=== PATIENT | female | born 1950 | race Caucasian/White ===

== ENCOUNTER → 2020-02-02 12:19 | Outpatient (CLI) | payer MEDICARE, SELFPAY ==
--- NOTE | 2020-02-02 12:20 | MM_ITS ---
PROCEDURE: MM STEREOTACTIC LOC RT CLINICAL INDICATION: abnormal mamm/ HO lt breast cancer Abnormal mammogram, suspicious calcifications, history of left breast cancer TECHNIQUE: The patient was given 1 mg of Xanax, Lortab 5 mg, and analgesia and minor sedation. The patient was placed on the stereotactic table and the abnormality was localized in the most appropriate projection. The breast was prepped in the routine manner, with sterile prep and the overlying skin anesthetized. A 3 to 4 mm skin incision was performed and the 9 gauge sorus vacuum-assisted core biopsy needle was advanced to the region of the calcification. Pre- and post fire images were obtained. After adequate positioning relative to the calcifications was ensured, multiple biopsies were obtained in the region of the calcifications specifically. The core biopsies obtained were sent for specimen mammography. After the calcifications were indeed identified on the specimen mammogram, the procedure was terminated. The patient tolerated the procedure well without complications. Specimen was sent for pathologic analysis. A tiny titanium nonferromagnetic MicroMark was positioned through the mammotome needle into the biopsy site. Pathology: Fibroadenomatoid change with associated microcalcifications with a background of fibrocystic changes and adenosis. Negative for in situ and invasive malignancy IMPRESSION: Successful and uneventful stereotactic directed biopsy of the right breast showing benign findings. Recommend six-month mammographic follow-up per routine protocol. SPECIMEN RADIOGRAPH: The mammographically evident calcifications from the prior study are currently evident within the Perez dish and within the specimens obtained during mammotome procedure. This is considered an adequate specimen and the procedure was terminated. IMPRESSION: Successful removal of described breast calcifications. BREAST MAMMOGRAM: Compared to the prior study, the previously noted calcification have been removed. A small MicroMark clip was inserted into the region of the calcifications. There is evidence of soft tissue changes in the region of the biopsy was soft tissue gas and edema. 1. Adequate placement of the MicroMark clip postbiopsy. 2. Postbiopsy changes within the breast. Dictated by: Anand Hernandez MD 02/04/2020 12:16 Electronically signed by Anand Hernandez MD in [place] 02/04/2020 12:16
--- NOTE | 2020-02-02 13:11 | MM_ITS ---
PROCEDURE: MM DIG MAMM DX UNILAT RT CAD the CLINICAL INDICATION: EVALUATE FOR STEREO patient for stereotactic biopsy. Old films not available for review which were performed at an outside institution COMPARISON: No exams were available for comparison TECHNIQUE: Standard CC and MLO images and 3D Tomosynthesis was obtained. R2 CAD reviewed. FINDINGS: There is average to dense fibroglandular tissue. A cluster of calcifications are noted in the 6 o'clock region of the right breast which are suspicious and were described on the outside report. These were targeted for biopsy. IMPRESSION: BI-RAD Category: 4 Suspicious Abnormality - Biopsy Considered FOLLOW-UP: BIO Biopsy Recommended (A letter has been sent to the patient regarding results of the study.) Dictated by: Anand Hernandez MD 02/04/2020 12:12 Electronically signed by Anand Hernandez MD in [place] 02/04/2020 12:12
== END ==
PROVIDERS: PCP Physician Assistant; Visit Provider Surgery
DX: R92.8 Other abnormal and inconclusive findings on diagnostic imaging of breast (principal); Z85.3 Personal history of malignant neoplasm of breast
CPT/HCPCS: 19081; 76098; 77061; 77065; 88305; G0279

== ENCOUNTER → 2020-08-15 12:48 | Outpatient (CLI) | payer MEDICARE, SELFPAY ==
--- NOTE | 2020-08-15 12:54 | MM_ITS ---
PROCEDURE: MM DIG MAMM DX UNILAT RT CAD Digital Breast Tomosynthesis Included CLINICAL INDICATION: 6 MONTH FOLLOW UP COMPARISON: MG MM STEREOTACTIC LOC RT from 02/02/2020 MG MM DIG MAMM DX UNILAT RT CAD from 02/02/2020 MG MM CLIP PLACEMENT RT from 02/02/2020 TECHNIQUE: Standard CC and MLO images and 3D Tomosynthesis was obtained. R2 CAD reviewed. FINDINGS: Or glandular tissue. No malignant appearing mass or malignant-appearing microcalcification is evident. A clip is present in the inferior aspect of the right breast in the area of the previously described cluster of microcalcifications which are no longer apparent. IMPRESSION: Post biopsy changes. No evidence of malignancy. Recommend return to screening January 2021 BI-RAD Category: 2 Benign Finding(s) FOLLOW-UP: 6M 6Month Follow-up (A letter has been sent to the patient regarding results of the study.) Dictated by: Anand Hernandez MD 08/21/2020 09:25 Anand Hernandez MD in [place] 08/21/2020 09:25
== END ==
PROVIDERS: PCP Physician Assistant; Visit Provider Surgery
DX: R92.8 Other abnormal and inconclusive findings on diagnostic imaging of breast (principal)
CPT/HCPCS: 77061; 77065; G0279

== ENCOUNTER → 2021-01-29 09:39 | Outpatient (CLI) | payer MEDICARE, SELFPAY ==
--- NOTE | 2021-01-29 10:05 | MM_ITS ---
PROCEDURE: MM DIG SCREENING MAMM BI W/CAD Digital Breast Tomosynthesis Included CLINICAL INDICATION: SCREENING There is a history of lumpectomy left breast with follow-up chemotherapy in 2015. There is a history of breast cancer in the patient's 2 maternal cousins. COMPARISON: MG MM STEREOTACTIC LOC RT from 02/02/2020 MG MM CLIP PLACEMENT RT from 02/02/2020 MG MM DIG MAMM DX UNILAT RT CAD from 08/15/2020 TECHNIQUE: Standard CC and MLO images and 3D Tomosynthesis was obtained. R2 CAD reviewed. FINDINGS: There is prominent deformity left breast from the previous lumpectomy. Surgical clips are seen at the surgical site and in addition surgical clips are seen in the left axilla. Moderate residual fibroglandular elements are seen in both breasts. There is a biopsy clip right breast. There is no suspicious lesion in either breast and no suspicious microcalcifications. IMPRESSION: Moderate breast density with prominent postlumpectomy scarring left breast and no suspicious lesions seen. BI-RAD Category: 2 Benign Finding(s) FOLLOW-UP: 1YR 1 Year Follow-up (A letter has been sent to the patient regarding results of the study.) Dictated by: Dr. Sean Saunders MD 01/30/2021 11:08 Dr. Sean Saunders MD in [place] 01/30/2021 11:08
== END ==
PROVIDERS: PCP Physician Assistant; Visit Provider Surgery
DX: Z12.31 Encounter for screening mammogram for malignant neoplasm of breast (principal)
CPT/HCPCS: 77063; 77067

== ENCOUNTER → 2022-01-31 09:20 | Outpatient (CLI) | payer MEDICARE, OTHER, SELFPAY ==
--- NOTE | 2022-01-31 09:20 | MM_ITS ---
PROCEDURE INFORMATION: Exam: MG Bilateral Screening 3D Mammography Exam date and time: 01/31/2022 9:20 AM Age: 71 years old Clinical indication: Screening. Personal history of left breast cancer, status post lumpectomy in 2014. TECHNIQUE: Imaging protocol: Bilateral Screening tomosynthesis and 2D mammography including computer-aided detection (CAD) when performed. COMPARISON: MG MM DIG SCREENING MAMM BI W/CAD 01/29/2021 10:01 AM If additional prior mammograms are provided, I am happy to an addendum. FINDINGS: MAMMOGRAPHY: Breast composition: The breast tissue is heterogeneously dense, which may obscure small masses. Mass: Stable nodular appearance with no suspicious mass. Architectural distortion: Stable deformity and surgical clips at the lumpectomy site in the left lower inner quadrant. No suspicious architectural distortion. Calcifications: No suspicious calcifications. Asymmetric density: No developing asymmetry. Skin thickening: None. Axillary adenopathy: None. Surgical clips in the left axilla. IMPRESSION: No mammographic evidence of malignancy. Annual screening is recommended unless otherwise clinically indicated. ASSESSMENT: BI-RADS Category 2: Benign
== END ==
PROVIDERS: PCP Emergency Medicine; Visit Provider Surgery
DX: Z12.31 Encounter for screening mammogram for malignant neoplasm of breast (principal)
CPT/HCPCS: 77063; 77067

== ENCOUNTER → 2023-02-25 10:38 | Outpatient (CLI) | payer MEDICARE, OTHER, SELFPAY ==
--- NOTE | 2023-02-25 10:41 | MM_ITS ---
PROCEDURE INFORMATION: Exam: MG Bilateral Screening 3D Mammography Exam date and time: 02/25/2023 10:40 AM Age: 72 years old Clinical indication: Screening examination; Personal history of left breast cancer; Lumpectomy and chemotherapy TECHNIQUE: Imaging protocol: Bilateral Screening tomosynthesis and 2D mammography including computer-aided detection (CAD) when performed. COMPARISON: 1. MG MM DIG SCREENING MAMM BI W/CAD 01/31/2022 9:34 AM 2. MG MM DIG SCREENING MAMM BI W/CAD 01/29/2021 10:01 AM FINDINGS: MAMMOGRAPHY: Breast composition: The breasts are heterogeneously dense, which may obscure small masses. Mass: None. Architectural distortion: Stable post operative architectural distortion in the left medial breast due to prior lumpectomy for carcinoma. Calcifications: No suspicious calcifications. Asymmetric density: None. Skin thickening: None. Axillary adenopathy: None. IMPRESSION: No mammographic evidence of malignancy. Annual screening is recommended unless otherwise clinically indicated. ASSESSMENT: BI-RADS Category 2: Benign
== END ==
PROVIDERS: PCP Emergency Medicine; Visit Provider Emergency Medicine
DX: Z12.31 Encounter for screening mammogram for malignant neoplasm of breast (principal)
CPT/HCPCS: 77063; 77067

== ENCOUNTER 2024-03-08 14:37 | Outpatient (CLI) | payer MEDICARE, OTHER, SELFPAY ==
--- NOTE | 2024-03-08 14:42 | MM_ITS ---
PROCEDURE INFORMATION: Exam: MG Bilateral Screening 3D Mammography Exam date and time: 03/08/2024 2:51 PM Age: 73 years old Clinical indication: Screening examination. Personal history of left breast cancer TECHNIQUE: Imaging protocol: Bilateral Screening tomosynthesis and 2D mammography including computer-aided detection (CAD) when performed. COMPARISON: 1. MG MM DIG SCREENING MAMM BI W/CAD 02/25/2023 10:40 AM 2. MG MM DIG SCREENING MAMM BI W/CAD 01/31/2022 9:34 AM FINDINGS: MAMMOGRAPHY: Breast composition: The breasts are heterogeneously dense, which may obscure small masses. Mass: None. Architectural distortion: Stable post operative architectural distortion in the left medial breast with overlying skin retraction due to prior lumpectomy for carcinoma. Calcifications: No suspicious calcifications. Asymmetric density: None. Skin thickening: None. Axillary adenopathy: None. IMPRESSION: No mammographic evidence of malignancy. Annual screening is recommended unless otherwise clinically indicated. ASSESSMENT: BI-RADS Category 2: Benign.
== END 2024-03-08 23:59 ==
LOC: RAD 14:38
PROVIDERS: PCP Emergency Medicine; Visit Provider Emergency Medicine
DX: Z12.31 Encounter for screening mammogram for malignant neoplasm of breast (principal)
CPT/HCPCS: 77063; 77067

== ENCOUNTER 2025-03-09 15:15 | Outpatient (CLI) | payer MEDICARE, SELFPAY ==
--- NOTE | 2025-03-09 15:18 | MM_ITS ---
PROCEDURE INFORMATION: Exam: MG Bilateral Screening 3D Mammography Exam date and time: 03/09/2025 3:24 PM Age: 74 years old Clinical indication: Screening examination. History of left breast cancer TECHNIQUE: Imaging protocol: Bilateral Screening tomosynthesis and 2D mammography including computer-aided detection (CAD) when performed. COMPARISON: 1. MG MM DIG SCREENING MAMM BI W/CAD 03/08/2024 2:51 PM 2. MG MM DIG SCREENING MAMM BI W/CAD 02/25/2023 10:40 AM FINDINGS: MAMMOGRAPHY: Breast composition: The breasts are heterogeneously dense, which may obscure small masses. Mass: None. Architectural distortion: Stable post operative architectural distortion in the left right medial breast with overlying skin retraction due to prior lumpectomy for carcinoma. Calcifications: No suspicious calcifications. Asymmetric density: None. Skin thickening: None. Axillary adenopathy: None. IMPRESSION: 1. No mammographic evidence of malignancy. Annual screening is recommended unless otherwise clinically indicated. 2. In women diagnosed with breast cancer before age 50 or with personal histories of breast cancer and dense breasts, the [employer] recommends annual supplemental MRI in addition to yearly mammography. Alternative supplemental studies may include breast sonography or contrast enhanced mammography. Please be aware that your insurance company will determine whether they will cover the cost of such screening, despite the recommendation of your doctors and the [employer]. It is your responsibility to determine your insurance benefits. ASSESSMENT: BI-RADS Category 2: Benign.
--- OUTSIDE RECORDS SUMMARY | 2025-03-10 22:28 | XMS_ITS | Continuity of Care Document ---
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 Plan of Treatment Reminders Order Date Submit Date Provider Last Modified By Organization Details Last Modified Time Details Appointments OV EST 15 2024 02:00P M Wilman Edge M.D Not available Not available Not available Lab HbA1c (hemoglob in A1c), blood 2024 025 [facility] (Laboratory), [address] [place], [address], 01/25/2025 16:03:14 lipid panel, serum 2024 025 [facility] (Laboratory), [address] [place], [address], 01/25/2025 16:56:33 CBC w/ auto diff 2024 025 [facility] (Laboratory), [address] [place], [address], 01/25/2025 16:35:51 CMP, serum or plasma 2024 025 [facility] (Laboratory), [address] [place], [address], 01/25/2025 16:56:35 TSH, serum or plasma 2024 025 [facility] (Laboratory), [address] [place] [address] [place], [address], 01/25/2025 16:56:31 Referral None recorded. Procedures None recorded. Surgeries None recorded. Imaging PET, whole body 2024 025 [facility] Radiology, [address] [place] [address] [place], [address], 02/22/2025 08:20:18 Medication Orders Zithromax Z-Jalen 250 mg tablet 2024 025 [facility]/Pharmacy #[id number], [address] [place], [address], 03/01/2025 08:12:06 Medrol (Jalen) 4 mg tablets in a dose pack 2024 025 [facility]/Pharmacy #[id number], [address] [place], [address], 03/01/2025 08:12:15 Patient TargetsNo targets recorded. Patient InstructionsNo instructions recorded. Reason for Referral None Reported. Results Created Date Observation Date Name Description Value Unit Range Abnormal Flag Note LastModifiedBy Organization Detail LastModifiedTime 02/16/2002/15/2025 imagi ng inter preta tion No observ ation record ed. [facility] (Registration ) [address] [place] [address] [place], [address], 02/15/2025 16:08:45 03/02/2002/16/2025 compl ete PFT* No observ ation record ed. [facility] (Sleep Lab) [address] [place] [address] [place], [address], 03/03/2025 08:17:15 03/07/20 25 05/27/2023 XR, chest , 2 view No observ ation record ed. [email or web address] [facility] (Radiology) [address] , [place], [address], 03/07/2025 11:16:12 03/07/20 25 12/11/2023 LDCT, chest , for lung cance r scree lulu No observ ation record ed. [address] (Radiology) [address] [place], [address], 03/07/2025 11:15:54 03/07/20 25 05/17/2024 XR, chest , 2 view No observ ation record ed. [address] (Radiology) [address] [place], [address], 03/07/2025 11:15:41 03/07/20 25 12/21/2024 LDCT, chest , for lung cance r scree lulu No observ ation record ed. [facility] (Radiology) [address], [place], [address], 03/07/2025 11:14:12 03/07/20 25 02/16/2025 compl ete PFT* No observ ation record ed. [facility] [address], [place], [address], 03/07/2025 15:34:53 Result Notes None recorded. Problems Name Problem SNOMED Code Status Onset Date Resolution Date Notes Provider Name and Address Organization Details Recorded Time Malignant neoplasm of female breast 593863284 Active Manuel Underwood null, [place] - [facility] - [place] & [place] 4 09:33:45 Simple chronic bronchitis 73260752 Active Manuel [place] [facility] [place] 4 09:34:12 Patient encounter status 941781708 Active Manuel [place] null, [place] [facility] [place] 4 09:34:04 Paresthesi a 46554937 Active Manuel [place] null, [place] [facility] [place] 4 09:34:01 Allergic bronchitis 742000855 Active Manuel Underwood null, [place] [facility] & [place] 4 09:32:37 History of malignant neoplasm of breast 093445120 Active Manuel Underwood null, [place] [facility] & [place] 4 09:33:32 Bronchitis 78507534 Active Manuel Underwood null, [place] [facility] & [place] 4 09:32:40 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 Active Manuel Underwood null, [place] [facility] & [place] 4 09:33:58 Chronic diarrhea 342878379 Active Manuel Underwood null, [place] [facility] & [place] 4 09:32:54 Anemia 595214821 Active Not Available [facility] 4 07:59:57 Mixed hyperlipid emia 843280654 Active Not Available [facility] 4 07:59:57 Hematochez ia 312134495 Active Manuel Underwood null, [place] DIAZ [facility] & [place] 4 09:33:28 Iron deficiency anemia 03828553 Active Manuel Underwood null, [place] [facility] & [place] 4 09:33:41 Acute bronchitis 49929767 Active Manuel Underwood null, [place] [facility] & [place] 4 09:32:22 Acute maxillary sinusitis 18818769 Active Manuel Underwood null, [place] [facility] & [place] 4 09:32:31 Diabetes mellitus 86925830 Active Manuel Underwood null, [place] [facility] & [place] 4 09:33:03 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 32703288 Active Not Available [facility] 4 07:59:57 Edema 494556941 Active Manuel Underwood null, [place] [facility] [place] & [place] 4 09:33:18 Chronic obstructiv e pulmonary disease 33370442 Active Not Available [facility] 4 07:59:57 Tobacco user 961789182 Active Manuel Underwood null, [place] - [place] - [place] & [place] 4 09:34:20 Seasonal allergic rhinitis 555194706 Active MEGAN [place] & [place] 4 09:34:08 Carpal tunnel syndrome of left wrist 4835562486683 02 Active MEGAN [place] 4 09:32:44 Type 2 diabetes mellitus without complicati on 291786033 Active Not Available [facility] 4 07:59:57 Hyperlipid emia 14990300 Active MEGAN [place] 4 09:33:36 Acute exacerbati on of chronic obstructiv e pulmonary disease 704465691 Active MEGAN [place] 4 09:32:25 Gastroesop hageal reflux disease without esophagiti s 007703447 Active Not Available [facility] 4 07:59:57 Fecal occult blood: positive Active MEGAN Denton [facility] & [place] 4 09:33:25 Vaccinatio n given 115987684 Active [place]GAN [place] [facility] [place] 4 09:34:25 Chronic bronchitis 02195035 Active 2022 [place] [facility] & [place] 4 09:32:48 Dyspnea on exertion 21724244 Active 2022 [place] [facility] & [place] 4 09:33:14 Tobacco dependence caused by cigarettes 1899470919762 9107 Active 2022 [place] [facility] - [place] & [place] 4 09:34:16 Problem Notes None recorded. Procedures Surgical History Date Name Laterality Status Provider Name and Address Organization Details Recorded Time 2024 Medicare Annual Wellness Visit Health Risk Assessment completed Yue Gordillo [place] 5 08:17:15 2023 completed Milka Shelbie [place] [facility] & [place] 4 15:56:21 2023 Most Recent Bone Density completed Milka Shelbie [place] - [facility] [place] [facility] & [place] 4 15:56:21 2023 Medicare Annual Wellness Visit Health Risk Assessment completed Yue Pardini [place] [facility] [place] [facility] & [place] 4 08:50:39 2021 Medicare Annual Wellness Visit Health Risk Assessment completed Yue Pardini [place] [facility] 2 08:21:17 2018 Date of Last Colonoscopy completed Milka Shel[place] [facility] 4 15:56:21 2018 Colonoscopy completed Milka [place] [facility] 4 16:12:04 2015 Colonoscopy completed Milka [place] [facility] [place] [facility] & [place] 4 16:10:05 2014 lumpectomy of left breast completed Zoë [place] - [facility] - [place] & [place] 3 09:30:55 2013 esophagogastroduodenoscopy completed Zoë [place] - [facility] - [place] & [place] 3 09:31:04 2013 EGD completed Harriet Joseph [place] 3 09:10:36 2011 Colonoscopy completed Milka [place] - [facility] 4 16:09:30 2005 Colonoscopy completed Milka [place] [facility] [place] [facility] & [place] 4 16:08:28 1991 Carpal Tunnel Surgery completed Zoë Francisco [place] [facility] - [place] 3 09:31:36 1981 cholecystectomy completed Milka [place] [facility] [place] [facility] & [place] 4 16:07:26 1966 Tonsillectomy completed Zoë GUZMAN - [facility] - [place] & [place] 3 09:31:15 Imaging Results None recorded. Procedure Notes None recorded. Medical Equipment None Reported. Allergies Allergen ID Allergen Name Allergen Category Reaction Reaction Severity Criticality Documentation Date Start Date Code Code System Note Provider Name and Address Organization Details Recorded Time 6993 glimepiri de medicatio n rash mild low 08/09/2022 02665 [facility] [place] Colon null, [place] - [facility] & [place] 5 13:14:36 6994 tamoxifen medicatio n diarrhea severe high 08/09/2022 07114 [facility] [place] Colon null, [place] - [facility] - [place] & [place] 5 13:14:49 71966 Amaryl medicatio n rash Not available Not available 05/30/2023 62516 2 RxNorm Zoë Singh null, [place] - [facility] & [place] 3 09:29:55 17301 Augmentin medicatio n diarrhea severe high 05/30/2023 74106 2 [facility] [place] Colon null, [place] - [facility] & [place] 5 13:14:42 Medications Name Sig Start Date Stop Date Status Note LastModified by Organization Details LastModified Time cyanocobala min (vit B-12) ER 1,000 mcg tablet,exte nded release 08/26 completed Not Available Not Available Not Available anastrozole 1 mg tablet 11/30 completed Not Available Not Available Not Available promethazin e-DM 6.25 mg-15 mg/5 mL oral syrup Take 5 mL every 4 hours by oral route. 03/01 completed Not Available Not Available Not Available potassium chloride ER 10 mEq capsule,ext ended release TAKE 1 CAPSULE ONE TIME DAILY WITH FOOD active Not Available Not Available No t Available prednisone 10 mg tablet (10 MG) 02/19 completed Not Available Not Available Not Available doxycycline hyclate 100 mg capsule TAKE 1 CAPSULE BY MOUTH TWICE A DAY FOR 14 DAYS 10/19 completed Not Available Not Available Not Available atorvastati n 20 mg tablet TAKE 1 TABLET EVERY DAY active Not Available Not Available No t Available azithromyci n 250 mg tablet TAKE 2 TABLETS BY MOUTH TODAY, THEN TAKE 1 TABLET DAILY FOR 4 DAYS DIRECTED 03/01 completed Not Available Not Available Not Available glyburide 2.5 mg tablet TAKE 1 TABLET BY MOUTH EVERY DAY active Not Available Not Available No t Available prednisone 20 mg tablet TAKE 3 TABLETS BY MOUTH EVERY DAY FOR 7 DAYS 10/19 completed Not Available Not Available Not Available promethazin e 6.25 mg-codeine 10 mg/5 mL syrup (6.25-10 MG/5ML) 02/19 completed Not Available Not Available Not Available omeprazole 40 mg capsule,del ayed release TAKE 1 CAPSULE ONCE A DAY 30 MINUTES BEFORE MORNING MEAL active Not Available Not Available No t Available Kenalog 40 mg/mL suspension for injection Take 40 mg by injection route. 12/02 completed Not Available Not Available Not Available meloxicam 7.5 mg tablet TAKE 1 TABLET BY MOUTH EVERY DAY NEEDED 12/02 completed Not Available Not Available Not Available ceftriaxone 1 gram solution for injection Take 1 g by injection route. 03/05 completed Not Available Not Available Not Available furosemide 80 mg tablet TAKE 1/2 TABLET EVERY DAY NEEDED 2024 active Not Available Not Available Not Avai lable benzonatate 100 mg capsule Take 1 capsule 3 times a day by oral route. 11/26 completed Not Available Not Available Not Available doxycycline monohydrate 100 mg capsule TAKE 1 CAPSULE BY MOUTH TWICE A DAY 08/19 completed Not Available Not Available Not Available ferrous sulfate 325 mg (65 mg iron) tablet (325 (65 Fe) MG) active Not Available Not Available No t Available metformin 1,000 mg tablet TAKE 1 TABLET TWICE DAILY 2024 active Not Available Not Available Not Avai lable nicotine 21 mg/24 hr daily transdermal patch APPLY 1 PATCH ON SKIN EVERY DAY 12/02 completed Not Available Not Available Not Available montelukast 10 mg tablet TAKE 1 TABLET EVERY DAY active Not Available Not Available No t Available dexamethaso ne sodium phosphate 4 mg/mL injection solution Inject 1 mL by intramusc ular route. 12/02 completed Not Available Not Available Not Available methylpredn isolone 4 mg tablets in a dose pack TAKE 6 TABLETS ON DAY 1 DIRECTED ON PACKAGE AND DECREASE BY 1 TAB EACH DAY FOR A TOTAL OF 6 DAYS 03/01 completed Not Available Not Available Not Available albuterol sulfate HFA 90 mcg/actuati on aerosol inhaler INHALE 2 PUFFS 4 TIMES A DAY active Not Available Not Available No t Available metformin ER 500 mg tablet,exte nded release 24 hr (500 MG) 03/05 completed Not Available Not Available Not Available loratadine 10 mg tablet TAKE 1 TABLET EVERY DAY 2023 active Not Available Not Available Not Avai lable spironolact one 50 mg tablet TAKE 1/2 TABLET TWICE DAILY active Not Available Not Available No t Available Janumet 50 mg-1,000 mg tablet 08/26 completed Not Available Not Available Not Available Symbicort 160 mcg-4.5 mcg/actuati on HFA aerosol inhaler 11/24 completed Not Available Not Available Not Available Solu-Medrol (PF) 125 mg/2 mL solution for injection Take 125 mg by injection route. 03/05 completed Not Available Not Available Not Available Caltrate 600 plus D 1 tablet daily active Not Available Not Available No t Available TRUEplus Lancets 33 gauge USE TO TEST BLOOD SUGAR ONE TIME DAILY DIRECTED active Not Available Not Available No t Available True Metrix Glucose Test Strip CHECK BLOOD SUGAR ONE TIME DAILY DIRECTED active Not Available Not Available No t Available Spiriva Respimat 2.5 mcg/actuati on solution for inhalation Inhale 2 puffs every day by inhalatio n route for 30 days. active Not Available Not Available No t Available Centrum Silver Women 1 daily active Not Available Not Available Not Available Trelegy Ellipta 100 mcg-62.5 mcg-25 mcg powder for inhalation 12/02 completed Not Available Not Available Not Available Wixela Inhub 250 mcg-50 mcg/dose powder for inhalation Inhale 1 puff twice a day by inhalatio n route for 30 days. active Not Available Not Available No t Available Trelegy Ellipta 200 mcg-62.5 mcg-25 mcg powder for inhalation 03/01 completed Not Available Not Available Not Available True Metrix Glucose Meter kit active Not Available Not Available No t Available Vitals Date Recorded Body height Body mass index (BMI) Body weight Body temperature Oxygen saturation Oxygen saturation in Arterial blood by Pulse oximetry Heart rate Respiratory rate Systolic blood pressure Diastolic blood pressure Provider Name and Address Organization Details Last Updated DateTime 5 168.91 cm 27.9 kg/m2 88561.1 g 96.4 [degF] 96 % 96 % 117 /min 16 /min 145 mm[Hg] 76 mm[Hg] Yue Gordillo [place] - [facility] & [place] 5 14:10:09 Social History Question Answer Notes LastModified by Organizat ion Details LastModified Time Tobacco Smoking Status Former Smoker Yue guadarrama, [place] [facility] & [place] 12/02/2023 08:46:33 Do You Have An Advance Directive? No [email or web address] Information not available 05/05/2024 What Is Your Level Of Alcohol Consumption? None [email or web address] Information not available 09/25/2023 Do You Wear A Helmet When Biking? Yes [email or web address] Information not available 05/05/2024 Are You Blind Or Do You Have Difficulty Seeing? No [email or web address] Information not available 05/05/2024 What Is Your Level Of Caffeine Consumption? Occasional [email or web address] Information not available 12/29/2023 In The 14 Days Before Symptom Onset, Have You Had Close Contact With A Laboratory-confir med COVID-19 While That Case Was Ill? No [email or web address] Information not available 05/05/2024 In The 14 Days Before Symptom Onset, Have You Had Close Contact With A Person Who Is Under Investigation For COVID-19 While That Person Was Ill? No [email or web address] Information not available 05/05/2024 Have You Been To An Area Known To Be High Risk For COVID-19? No [email or web address] Information not available 05/05/2024 Are You Currently Employed? No [email or web address] Information not available 05/05/2024 Are You Deaf Or Do You Have Serious Difficulty Hearing? No [email or web address] Information not available 05/05/2024 What Type Of Diet Are You Following? REGULAR [email or web address] Information not available 05/05/2024 Have You Processed Blood Or Body Fluids From An Ebola Virus Disease Patient Without Appropriate PPE? No [email or web address] Information not available 05/05/2024 Do You Reside In Or Have You Traveled To An Area Where Ebola Virus Transmission Is Active? No [email or web address] Information not available 05/05/2024 Have There Been Any Changes To Your Family Or Social Situation? No [email or web address] Information no t available 05/05/2024 What Is The Fluoride Status Of Your Home? Unknown [email or web address] Information not available 05/05/2024 When Did You Quit Smoking? 1-5yearssincel eric [email or web address] Information not available 12/29/2023 Are There Any Guns Present In Your Home? No [email or web address] Information not available 05/05/2024 Have You Recently Or Are You Planning To Travel To An Area With Zika Virus? No [email or web address] Information not available 05/05/2024 Do You Use Insect Repellent Routinely? Yes [email or web address] Information not available 05/05/2024 In General, Would You Say Your Health Is Good Information not available 03/01/2025 How Would You Describe The Condition Of Your Mouth And Teeth? including False Teeth Or Dentures? Good Information not available 03/01/2025 In The Past 7 Days, How Many Servings Of Fruits And Vegetables Did You Typically Eat Each Day? (1 Serving = 1 Cup Of Fresh Vegetables, 1? 2 Cup Of Cooked Vegetables, Or 1 Medium Piece Of Fruit. 1 Cup = Size Of A Baseball.) 1-2 Servings Per Day Information not available 03/01/2025 In The Past 7 Days, How Many Servings Of High Fiber Or Whole Grain Foods Did You Typically Eat Each Day? (1 Serving = 1 Slice Of 100% Whole Wheat Bread, 1 Cup Of Whole-grain Or High-fiber Upmpc-ag-qhq Cereal, 1? 2 Cup Of Cooked Cereal Such As Oatmeal, Or 1? 2 Cup Of Cooked Brown Rice Or Whole Wheat Pasta.) 1-2 Servings Per Day Information not available 03/01/2025 In The Past 7 Days, How Many Servings Of Fried Or High-fat Foods Did You Typically Eat Each Day? (Examples Include Fried Chicken, Fried Fish, Lopez, Afghan [place], Potato Chips, [place] Chips, Doughnuts, Creamy Salad Dressings, And Foods Made With Whole Milk, Cream, Cheese, Or Mayonnaise.) 1-2 Servings Per Day Information not available 03/01/2025 In The Past 7 Days, How Many Sugar-sweetened (not Diet) Beverages Did You Typically Consume Each Day 1-2 Drinks Per Day Information not available 03/01/2025 Each Night, How Many Hours Of Sleep Do You Usually Get? 6-7 Hours Information not available 03/01/2025 Do You Snore Or Has Anyone Told You That You Snore? No Information not available 03/01/2025 In The Past 7 Days, How Often Have You Woodson Sleepy During The Daytime? Rarely Information not available 03/01/2025 Do You Have Chronic Pain? No Information not available 03/01/2025 Are You In A Pain Management Program? No Information not available 03/01/2025 Do You Take Opioids For Your Pain? No Information not available 03/01/2025 How Often Is Stress A Problem For You In Handling Such Things As: Your Health, Your Finances, Your Family And Social Relationships, Your Work? Never Or Rarely Information not available 03/01/2025 How Often Do You Get The Social And Emotional Support You Need: Always Information no t available 03/01/2025 In The Past 7 Days, Did You Need Help From Others To Take Care Of Things Such As Laundry And Housekeep- Ing, Banking, Shopping, Using The Telephone, Food Preparation, Transportation, Or Taking Your Own Medications? No Information not available 03/01/2025 Do You Live Alone? No Information not available 03/01/2025 Does Your Home Have Any Fall Risks (un-level Floors, Unfastened Rugs, Poor Lighting, Etc)? No Information not available 03/01/2025 Do You Feel Safe At Home? Yes [email or web address] Information not available 05/05/2024 Do You Have A Medical Power Of Sheetrock Applicator? No [email or web address] Information not available 05/05/2024 What Was The Date Of Your Most Recent Tobacco Screening? 05/02/2024 Information not available 07/06/2024 What Is Your Current Pack Years? 30ormorepackye ars [email or web address] Information not available 12/29/2023 Do You Have Any Pets? No [email or web address] Information not available 05/05/2024 Do You Use Your Seat Belt Or Car Seat Routinely? Yes [email or web address] Information not available 05/05/2024 Are You Sexually Active? No [email or web address] Information not available 12/29/2023 Do You Have Smoke And Carbon Monoxide Detectors In Your Home? Yes [email or web address] Information not available 05/05/2024 At What Age Did You Start Smoking Tobacco? 16 [email or web address] Information not available 12/29/2023 Are You Passively Exposed To Smoke? No [email or web address] Information no t available 05/05/2024 Do You Or Have You Ever Used Smokeless Tobacco? Never Used Smokeless Tobacco Information not available 07/06/2024 How Much Tobacco Do You Smoke? No Information not available 12/02/2023 Do You Feel Stressed (tense, Restless, Nervous, Or Anxious, Or Unable To Sleep At Night)? [id number] [email or web address] Information not available 12/02/2023 Do You Use Any Illicit Or Recreational Drugs? No Information not available 08/20/2022 Do You Use Sunscreen Routinely? Yes [email or web address] Information not available 05/05/2024 Has Tobacco Cessation Counseling Been Provided? No [email or web address] Information not available 12/29/2023 How Many Years Have You Smoked Tobacco? 59 [email or web address] Information not available 09/25/2023 Are You Currently In School? No Information not available 05/05/2024 Do You Or Have You Ever Used Any Other Forms Of Tobacco Or Nicotine? No [email or web address] Information not available 12/29/2023 Sex: Unknown Functional Status Question Answer Note LastModified by Organizat ion Details LastModified Time Do you have difficulty walking or climbing stairs? No [email or web address] Information not available 05/05/2024 Do you have transportation difficulties? No [email or web address] Information not available 05/05/2024 Are you able to walk? YESWOREST [email or web address] Information not available 05/05/2024 Do you have difficulty doing errands alone? No [email or web address] Information not available 05/05/2024 Are you able to care for yourself? Yes [email or web address] Information n ot available 05/05/2024 Do you have difficulty dressing or bathing? No [email or web address] Information not available 05/05/2024 What is your exercise level? Occasional Information not available 07/06/2024 Mental Status Question Answer Note LastModified by Organization D etails LastModified Time Do you have difficulty concentrating, remembering or making decisions? No [email or web address] Information no t available 05/05/2024 Family History Relationship Description Onset Age of this Age Resolved Age Notes LastModified by Organization Details LastModified Time Mother Bronchitis [email or web address] Not avail able 03/03/2025 14:00:17 Mother Congestive heart failure [email or web address] Not available 03/03 14:00:17 Mother Arthritis Not availa ble 03/03/2025 14:00:17 Mother Diabetes mellitus Not available 03/03 14:00:17 Mother Heart disease [email or web address] Not available 2024 13:18:12 Mother Malignant neoplasm of uterus [email or web address] Not available 03/03 14:00:17 Mother Hypertensive disorder [email or web address] Not available 2024 13:19:38 Brother Heart disease 1 Not available 2023 16:05:35 Brother Diabetes mellitus 1 [email or web address] Not available 03/03 14:00:17 Brother Heart disease 2 Not available 2023 16:05:38 Brother Heart disease 3 Not available 2023 16:05:42 Brother Diabetes mellitus 2 [email or web address] Not available 03/03 14:00:17 Brother Diabetes mellitus 3 [email or web address] Not available 03/03 14:00:17 Brother Arthritis Brothe r 1 [email or web address] Not available 03/03/2025 14:00:17 Brother Hypertensive disorder All 5 brothe rs [email or web address] Not available 01/27/2025 13:17:03 Sister Heart disease 1 Not available 2023 16:05:23 Sister Diabetes mellitus 1 [email or web address] Not available 03/03 14:00:17 Sister Heart disease 2 Not available 2023 16:05:32 Sister Diabetes mellitus 2 [id number] Not available 03/03 14:00:17 Sister Polyp precan cer polyp Not available 03/03/2025 14:00:17 Sister Hypertensive disorder [email or web address] Not available 2024 13:19:35 Paternal Grandfather Malignant tumor of colon [id number] Not available 03/03 14:00:17 Father Malignant tumor of stomach [email or web address] Not available 03/03 14:00:17 Son Hypertensive disorder [email or web address] Not available 2024 13:19:45 Medical History Condition Response Diabetes Y Anemia Y Thyroid Problems Y COPD Y High Cholesterol Y Gynecological History Statement/Question Response Date of Last Colonoscopy 09/08/2019 03/08/2024 Most Recent Bone Density 12/11/2023 Sexually Active? N Obstetrics History GPAL:G 0 P 0 0 0 0 Immunizations Vaccine Type Date Status Note Provider Nam e and Address Organization Details Recorded Time Influenza, high-dose, quadrivalent, PF 2 completed Yue guadarrama, [place] - [facility] & [place] 08/26/2022 12:12:50 Influenza, adjuvanted, quadrivalent, PF 1 completed Harriet gu[place], [place] [facility] & [place] 11/14/2023 09:10:46 COVID-19, mRNA, LNP-S, PF, 100 mcg/0.5mL dose or 50 mcg/0.25mL dose 1 completed Harriet gu[place], [place] [facility] & [place] 11/14/2023 09:10:46 COVID-19, mRNA, LNP-S, bivalent, PF, 50 mcg/0.5 mL or 25mcg/0.25 mL dose 2 completed Harriet gu[place], [place] - [facility] & [place] 11/14/2023 09:10:46 COVID-19, mRNA, LNP-S, PF, 100 mcg/0.5mL dose or 50 mcg/0.25mL dose 2 completed Harriet guadarrama [place] - [facility] & [place] 11/14/2023 09:10:46 COVID-19, mRNA, LNP-S, PF, 100 mcg/0.5mL dose or 50 mcg/0.25mL dose 1 completed Harriet Joseph null, [place] - [facility] [place] & [place] 11/14/2023 09:10:46 COVID-19, mRNA, LNP-S, PF, 100 mcg/0.5mL dose or 50 mcg/0.25mL dose 1 completed Harriet Joseph null, [place] [facility] [place] & [place] 11/14/2023 09:10:46 Influenza, adjuvanted, trivalent, PF 0 completed Harriet Joseph [place] [facility] [place] [facility] [place] 11/14/2023 09:10:46 pneumococcal polysaccharide PPV23 2 completed Harriet [place] [facility] [place] [facility] [place] 11/14/2023 09:10:46 Tdap 1 completed Harriet [place] [facility] [place] & [place] 11/14/2023 09:10:46 Influenza, split virus, trivalent, preservative 6 completed Harriet [place] [facility] [place] [facility] [place] 11/14/2023 09:10:46 Influenza, adjuvanted, trivalent, PF 8 completed Harriet [place] [facility] [place] [facility] [place] 11/14/2023 09:10:46 Influenza, adjuvanted, quadrivalent, PF 0 completed Harriet [place] [facility] [place] [facility] [place] 11/14/2023 09:10:46 Pneumococcal conjugate PCV 13 4 completed Harriet [place] [facility] [place] [facility] [place] 11/14/2023 09:10:46 pneumococcal polysaccharide PPV23 7 completed Harriet Joseph [place] [facility] [place] [facility] [place] 11/14/2023 09:10:46 Influenza, split virus, trivalent, preservative 5 completed Harriet Joseph null[place] [facility] [place] [facility] [place] 11/14/2023 09:10:46 zoster live 2 completed Harriet Joseph [place] [facility] [place] [facility] [place] 11/14/2023 09:10:46 Influenza, high-dose, trivalent, PF 7 completed Harriet [place] [facility] [place] [facility] [place] 11/14/2023 09:10:46 Influenza, adjuvanted, quadrivalent, PF 3 completed Danielle Shore MD [address], [facility], [place], [address], [place] [facility] [place] [facility] [place] 09/25/2023 14:47:01 Respiratory syncytial virus (RSV) vaccine, unspecified 3 completed Harriet Joseph [place], [place] - [facility] [place] [facility] [place] 11/14/2023 09:10:46 RSV, recombinant, protein subunit RSVpreF, adjuvant reconstituted, 0.5 mL, PF 3 completed Yue Monsivaisdini null, [place] - [facility] - [place] & [place] 10/04/2024 12:01:52 COVID-19, mRNA, LNP-S, PF, yfn-sucrose, 30 mcg/0.3 mL 3 completed Yue Pardini null, [place] [facility] [place] [facility] [place] 10/04/2024 12:01:52 zoster recombinant 4 completed Yue Pardini [place] [facility] [place] [facility] [place] 10/04/2024 12:01:52 Tdap 4 completed Harriet Joseph null, [place] [facility] [place] [facility] [place] 04/08/2024 15:13:38 zoster recombinant 4 completed Yue Pardini null, [place] [facility] [place] [facility] [place] 10/04/2024 12:01:52 Past Encounters Encounter ID Performer Location Encounter Start Date Encounter Closed Date Diagnosis/Indication Diagnosis SNOMED-CT Code Diagnosis ICD10 Code Diagnosis Note [id number] Jas Du MD [address] [place] [id number] 01/25/2025 13:59:10 01/25/2025 14:42:02 Acute exacerbation of chronic obstructive pulmonary disease 697452142 J44.1 Multiple n odules of lung 182918609 R91.8 WILL OBTAIN PETSCAN Type 2 michael betes mellitus 69908130 E11.9 Health Concerns Section Related Observation LastModified by Organization Detai ls LastModified Time None Recorded Concern Status LastModified by Organization Details LastModified Time None Recorded Payers Encounter Date Sequence Insurance Name Policy Number Policy Granger Covered Member ID Granger Member ID Guarantor Name 01/25/2025 1 [employer] (MEDICARE REPLACEMENT/A DVANTAGE - HMO) Latoya Ruiz [id number] Latoya Ruiz Notes Date Note Type Note Provider Name and Address Organization Details Recorded Time 01/25/2025 text/html patient presents today with a productive cough. She states she has had cough for 6 days. Cough is productive of yellowish sputum. She denies having a fever. Patient does have a history of COPD. She is actually under the care of the pulmonologists however appointment has been postponed. Patient had a low-dose CT scan on 12/25/2024 that showed some new nodules. A PET scan was recommended. Jas Du MD [address] [place] [address], [id number] & [place] 01/25/2025 15:59:00 OBGyn Episode No OBEpisode recorded.
--- OUTSIDE RECORDS SUMMARY | 2025-03-10 22:28 | XMS_ITS | Data Portability ---
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 She quit October 2023. She was diagnosed with COPD last year. She has history of cough with few sputum production. History admitted wheezing. She used inhalers. History of shortness breath on exertion. Restrict history of acid reflux diagnosed after EGD. Boostrix history of nasal allergies. She denied history of heart disease. No thrombosis. Tess obstructive sleep apnea. She has not on oxygen. December 2022 CT chest done at [facility] No noncalcified nodules or masses. Evidence of chronic lung disease. LUNG RADS Category 1. Recommend continued annual screening with low dose chest CT in 12 months. Patient previously seen by Dr. Green. check CBC differential, cytology, proBNP, alpha-1 antitrypsin, CMP, ABG. Check complete PFT. She is due for another follow-up low-dose CT chest. Order placed. Patient could not afford the cost of Trelegy due to high co-pay. Will use Advair Diskus 250 inhaler. Start Spiriva Respimat inhaler 2.5. Continue albuterol as needed. RTC 3 months. [email or web address] Not available 10/19/2024 22:27:47 03/01/2025 03/01/2025 PERSONALIZED HEALTH PLAN (COPY PROVIDED TO PATIENT) 1) Vaccines: (a) Pneumococcal Vaccine - Type: Last Service: Plan: (b) Influenza vaccine - Last Service: Plan: (c) Hepatitis B vaccine - Last Service: Plan: (d) Shingrix Vaccine - Last Service: Plan: (e) COVID - Last Service: Plan: (f) COVID vaccine booster - Last Service: Plan: (g) Tetanus Vaccine - Last Service: Plan: 2) Colorectal Cancer Screening for aged 45 ? 75 years: Last service: Finding: Plan: 3) Bone Mass Measurements: Last Service: Recommendation: Many older people benefit from taking calcium and vitamin D supplements. Talk to your doctor about supplements. 4) Glaucoma screening Last service: Plan: 5) Cardiovascular Disease Screening Tests (Lipid Panel): Last service: Plan: Cholesterol, serum, total: HDL: Triglycerides: LDL: 6) Lung Screening & Counseling w/low dose CT Last service: Recommendation: Plan: 7) Pre-diabetes screening: Recommendation: Last service: Finding: Plan: 8) Diabetes self-management training (diagnosed with diabetes) Last service: Recommendation: Plan: FEMALE ONLY 9) Breast cancer screening Last service: Recommendation: Plan: FEMALE ONLY 10) Screening Pap Tests Last service: Recommendation: Plan: FEMALE ONLY 11) Screening Pelvic Exam (include clinical breast exam Last service: Recommendation: Plan: 12) Medical Nutritional therapy Diet recommendations may include: -Lots of vegetables and fruits -Fewer simple carbohydrates, fats and cholesterol -A moderate amount of protein and dairy Avoid: Artificial sweeteners, Soda, & Processed food. 13) Exercise counseling You should do 30 minutes of aerobic exercise for at least 5 days per week. Regular exercise can help: -Lower heart disease risk -Delay the onset of diabetes -Improve blood pressure, functional status and performance -Reduce the risk of falls and osteoporosis -Enhance mental health and cognitive function 14) Abdominal Aortic Aneurysm screening: . MALE ONLY 15) Prostate Cancer Screening Last service: Recommendation: Plan: 16) Hepatitis C Screening Last service: Recommendation: Plan: 17) Advance Directive discussed with patient. Patient verbalizes understanding and questions answered Plan: This exam was performed under the supervision of: Further consultation: All recommendations have been discussed thoroughly with the patient. Next Medicare Annual Wellness Visit will be due in 1 year. [email or web address] Not available 03/01/2025 08:09:57 03/03/2025 03/03/2025 74-year-old male smoked more than 40 years 2 packs a day. She quit October 2023. She was diagnosed with COPD last year. She has history of cough with few sputum production. History admitted wheezing. She used inhalers. History of shortness breath on exertion. Restrict history of acid reflux diagnosed after EGD. Boostrix history of nasal allergies. She denied history of heart disease. No thrombosis. Tess obstructive sleep apnea. She has not on oxygen. January 2025 PFT spirometry with moderately severe obstructive lung disease FEV1 57%. No response to bronchodilator therapy. January 2025 PET scan decreased size of right upper lobe pulmonary nodule and absence of abnormal hypermetabolism indicates benign etiology. Increased radiotracer activity in the precarinal lymph node may be reactive in nature. December 2024 CT chest 2 cm right upper lobe nodule. Multiple small right lung nodules. December 2022 CT chest done at [facility] No noncalcified nodules or masses. Evidence of chronic lung disease. LUNG RADS Category 1. Recommend continued annual screening with low dose chest CT in 12 months. March 2025 eosinophil 2.1%. October 2024 IgE 60. Alpha-1 antitrypsin 153 mg/dL, mm. ProBNP 196. ABG 7.43/ 35/71. --------- Patient previously seen by Dr. Green. She is due for another follow-up low-dose CT chest. Patient could not afford the cost of Trelegy due to high co-pay. She still has last canister of Trelegy from PCP. She will start Advair Diskus 250 inhaler. Spiriva Respimat inhaler 2.5. Continue albuterol as needed. check CT chest with contrast further evaluate right lower paratracheal lymph node. RTC 3 months. [email or web address] Not available 03/03/2025 16:17:44 Plan of Treatment Reminders Order Date Submit Date Provider Last Modified By Organization Details Last Modified Time Details Appointments OV EST 15 2024 02:00P Joon Edge M.D Not available Not available Not available Lab CMP, serum or plasma 2024 025 [email or web address] [facility] (Lab Registration) , [address] [place] [address] [place], [address], 03/10/2025 07:38:22 TSH, serum or plasma 2024 [facility] (Laboratory), [address] [place], [address], 03/01/2025 14:17:45 HbA1c (hemoglob in A1c), blood 2024 025 [facility] (Laboratory), [address] [place], [address], 03/01/2025 13:56:41 microalbu min/creat inine, ratio, urine 2024 [facility] (Laboratory), [address] [place], [address], 03/08/2025 07:23:16 lipid panel, serum 2024 025 [facility] (Laboratory), [address] [place], [address], 03/01/2025 14:17:49 CMP, serum or plasma 2024 025 [facility] (Laboratory), [address] [place], [address], 03/01/2025 14:17:48 CBC w/ auto diff 2024 025 [facility] (Laboratory), [address] [place], [address], 03/01/2025 13:52:14 HbA1c (hemoglob in A1c), blood 2024 025 [facility] (Laboratory), [address] [place], [address], 01/25/2025 16:03:14 lipid panel, serum 2024 025 [facility] (Laboratory), [address] [place], [address], 01/25/2025 16:56:33 CBC w/ auto diff 2024 [facility] (Laboratory), [address] [place], [address], 01/25/2025 16:35:51 CMP, serum or plasma 2024 [facility] (Laboratory), [address] [place], [address], 01/25/2025 16:56:35 TSH, serum or plasma 2024 [facility] (Laboratory), [address] [place], [address], 01/25/2025 16:56:31 ige, total, serum 2023 [facility] (Laboratory), [address] [place], [address], 10/25/2024 16:16:03 CBC w/ auto diff 2023 [email or web address] [facility] (Laboratory), [address] [place], [address], 10/26/2024 07:44:05 pro BNP (pro B-type natriuret ic peptide), serum or plasma 2023 [facility] (Laboratory), [address] [place], [address], 10/19/2024 18:41:38 alpha-1-a ntitrypsi n (aat), QN, serum 2023 [facility] (Laboratory), [address] [place], [address], 10/24/2024 13:09:31 alpha-1-a ntitrypsi n (aat) phenotype , serum [address] (Laboratory), [address] [place] [address] [place], [address], 10/26/2024 07:44:05 gas panel, arterial blood [address] (Laboratory), [address] [place] [address] [place], [address], 10/26/2024 07:44:05 Referral None recorded. Procedures None recorded. Surgeries None recorded. Imaging CT, chest, w/ contrast 2024 025 [facility] (Central Scheduling), [address] [place] [address] [place], [address], 03/03/2025 15:50:34 MAMMO, screening , digital, bilateral 2024 025 [facility] Scheduling Department -New Scheduling Process, [address] [facility] [address], [place], [address], 03/01/2025 08:35:23 PET, whole body 2024 025 [facility] Radiology, [address] [place] [address] [place], [address], 02/22/2025 08:20:18 LDCT, chest, for lung cancer screening 2023 024 ROSE MARY Not available 12/21/2024 13:19:18 Medication Orders Zithromax Z-Jalen 250 mg tablet 2024 025 [id number] [address] [place], [address], 03/01/2025 08:12:06 Medrol (Jalen) 4 mg tablets in a dose pack [address] [facility]/Ph[facility] #3016, [address] [place], [address], 03/01/2025 08:12:15 albuterol sulfate HFA 90 mcg/actua tion aerosol inhaler [address] [facility] [address] [place], [address], 10/19/2024 17:46:08 Advair Diskus 250 mcg-50 mcg/dose powder for inhalatio n [address] [facility] [facility] [address] [place], [address], 10/19/2024 17:46:08 Spiriva Respimat 2.5 mcg/actua tion solution for inhalatio n [address] [facility] [facility] [address] [place], [address], 10/19/2024 17:46:08 prednison e 20 mg tablet 2023 024 [facility] [address] [place], [address], 10/19/2024 15:58:22 promethaz ine-DM 6.25 mg-15 mg/5 mL oral syrup 2023 025 [facility] [address] [place], [address], 03/01/2025 08:12:18 doxycycli ne hyclate 100 mg capsule 2023 024 [facility] [address] [place], [address], 10/19/2024 15:58:09 Patient TargetsNo targets recorded. Patient Instructions Encounter Date Encounter Id Patient Instructions Last Modified By Organization Details Last Modified Time 10/19/2024 [id number] complete PFT* Not available 0 12/23/2024 08:29:05 03/01/2025 [id number] advance directives: care instructions [email or web address] Not available 03/01/2025 08:12:01 well visit, over 65: care instructions [email or web address] Not available 03/01/2025 08:12:02 visual acuity* tpardini Not available 0 03/08/2025 07:21:38 Reason for Referral None Reported. Results Created Date Observation Date Name Description Value Unit Range Abnormal Flag Note LastModifiedBy Organization Detail LastModifiedTime 10/19/20 24 10/19/2024 ABG WITH CALC O2 SAT source ARTERI AL Not Available [facility] (Pre-Op Clinic) [address] [place] [address] [place], [address], 10/19/2024 17:42:09 10/19/20 24 10/19/2024 ABG WITH CALC O2 SAT pH 7.43 7.35-7 .45 MEDIC AL DIREC TOR: ANISH Vigil MD Not Available [facility] (Pre-Op Clinic) [address] [place] [address] [place], [address], 10/19/2024 17:42:09 10/19/20 24 10/19/2024 ABG WITH CALC O2 SAT pCO2 35.0 mmHg 35.0-4 5.0 Not Available [facility] (Pre-Op Clinic) [address] [place] [address] [place], [address], 10/19/2024 17:42:09 10/19/20 24 10/19/2024 ABG WITH CALC O2 SAT pO2 71.0 mmHg 60.0-1 00.0 Not Available [facility] (Pre-Op Clinic) [address] [place] [address] [place], [address], 10/19/2024 17:42:09 10/19/20 24 10/19/2024 ABG WITH CALC O2 SAT HCO3 (calculated) 23 mmol/ L 22-26 Not Available [facility] (Pre-Op Clinic) [address] [place] [address] [place], [address], 10/19/2024 17:42:09 10/19/20 24 10/19/2024 ABG WITH CALC O2 SAT base excess -0.6 mmol/ L -2.0-3 .0 Not Available [facility] (Pre-Op Clinic) [address] [facility] [place], [address], 10/19/2024 17:42:09 10/19/20 24 10/19/2024 ABG WITH CALC O2 SAT O2 saturation measured 97 % 90-100 If speci men is from tripp: mixed venou s o2sat range : 60 - 80 % Not Available [facility] (Pre-Op Clinic) [address] [place] [address] [place], [address], 10/19/2024 17:42:09 10/19/20 24 10/19/2024 ABG WITH CALC O2 SAT FiO2 21 Not Available [facility] (Pre-Op [facility]) [address] [place] [address] [place], [address], 10/19/2024 17:42:09 10/19/20 24 10/19/2024 ABG WITH CALC O2 SAT sunita's test ACCEPT ABLE Not Available [facility] (Pre-Op Clinic) [address] [place] [address] [place], [address], 10/19/2024 17:42:09 10/19/20 24 10/19/2024 ABG WITH CALC O2 SAT site LEFT RADIAL Not Available [facility] (Pre-Op Clinic) [address] [place] [address] [place], [address], 10/19/2024 17:42:09 10/19/20 24 10/19/2024 ABG WITH CALC O2 SAT note Unles s other velasquez noted testi ng [facility] [address] [place] [address] Anish vigil MD Not Available [facility] (Pre-Op [facility]) [address] [place] [address] [place], [address], 10/19/2024 17:42:09 10/19/20 24 10/19/2024 CBC W/ AUTO DIFF WBC 8.24 K/uL 4.5-11 .5 Not Available [facility] (Pre-Op Clinic) [address] [place] [address] [place], [address], 10/19/2024 17:50:36 10/19/20 24 10/19/2024 CBC W/ AUTO DIFF RBC 4.55 M/uL 4.0-5. 4 Not Available [facility] (Pre-Op Clinic) [address] [place] [address] [place], [address], 10/19/2024 17:50:36 10/19/20 24 10/19/2024 CBC W/ AUTO DIFF HGB 12.3 g/dL 12.0-1 5.0 Not Available [facility] (Pre-Op Clinic) [address] [place] [address] [place], [address], 10/19/2024 17:50:36 10/19/20 24 10/19/2024 CBC W/ AUTO DIFF HCT 39.4 % 35-49 Not Available [facility] (Pre-Op Clinic) [address] [place] [address] [place], [address], 10/19/2024 17:50:36 10/19/20 24 10/19/2024 CBC W/ AUTO DIFF MCV 86.6 fL 80.0-1 00.0 Not Available [facility] (Pre-Op [facility]) [address] [place] [address] [place], [address], 10/19/2024 17:50:36 10/19/20 24 10/19/2024 CBC W/ AUTO DIFF MCH 27.0 pg 26.0-3 2.0 Not Available [facility] (Pre-Op [facility]) [address] [place] [address] [place], [address], 10/19/2024 17:50:36 10/19/20 24 10/19/2024 CBC W/ AUTO DIFF MCHC 31.2 g/dL 32.0-3 6.0 low Not Available [facility] (Pre-Op Clinic) [address] [place] [address] [place], [address], 10/19/2024 17:50:36 10/19/20 24 10/19/2024 CBC W/ AUTO DIFF RDW 14.3 % 11.5-1 4.5 Not Available [facility] (Pre-Op [facility]) [address] [facility] [place], [address], 10/19/2024 17:50:36 10/19/20 24 10/19/2024 CBC W/ AUTO DIFF platelet count 252 K/uL 142-42 4 Not Available [facility] (Pre-Op [facility]) [address] [place] [address] [place], [address], 10/19/2024 17:50:36 10/19/20 24 10/19/2024 CBC W/ AUTO DIFF MPV 11.3 fL 6.8-10 .2 high Not Available [facility] (Pre-Op [facility]) [address] [place] [address] [place], [address], 10/19/2024 17:50:36 10/19/20 24 10/19/2024 CBC W/ AUTO DIFF neutrophil % 66.6 % 50-70 Not Available [facility] (Pre-Op [facility]) [address] [place] [address] [place], [address], 10/19/2024 17:50:36 10/19/20 24 10/19/2024 CBC W/ AUTO DIFF lymphocyte % 22.7 % 18.0-4 2.0 Not Available [facility] (Pre-Op Clinic) [address] [place] [address] [place], [address], 10/19/2024 17:50:36 10/19/20 24 10/19/2024 CBC W/ AUTO DIFF monocyte % 8.6 % 2.0-11 .0 Not Available [facility] (Pre-Op Clinic) [address] [place] [address] [place], [address], 10/19/2024 17:50:36 10/19/20 24 10/19/2024 CBC W/ AUTO DIFF eosinophil % 0.6 % 1.0-3. 0 low Not Available [facility] (Pre-Op [facility]) [address] [facility] [place], [address], 10/19/2024 17:50:36 10/19/20 24 10/19/2024 CBC W/ AUTO DIFF basophil % 1.1 % 0.0-2. 0 Not Available [facility] (Pre-Op Clinic) [address] [place] [address] [place], [address], 10/19/2024 17:50:36 10/19/20 24 10/19/2024 CBC W/ AUTO DIFF immature granulocytes % 0.4 % 0.0-0. 8 Not Available [facility] (Pre-Op Clinic) [address] [place] [address] [place], [address], 10/19/2024 17:50:36 10/19/20 24 10/19/2024 CBC W/ AUTO DIFF nucleated red blood cells % 0.0 % Not Available [facility] (Pre-Op Clinic) [address] [place] [address] [place], [address], 10/19/2024 17:50:36 10/19/20 24 10/19/2024 CBC W/ AUTO DIFF neutrophil # 5.49 K/uL Not Available [facility] (Pre-Op Clinic) [address] [place] [address] [place], [address], 10/19/2024 17:50:36 10/19/20 24 10/19/2024 CBC W/ AUTO DIFF lymphocyte # 1.87 K/uL Not Available [facility] (Pre-Op Clinic) [address] [place] [address] [place], [address], 10/19/2024 17:50:36 10/19/20 24 10/19/2024 CBC W/ AUTO DIFF monocyte # 0.71 K/uL Not Available [facility] (Pre-Op Clinic) [address] [place] [address] [place], [address], 10/19/2024 17:50:36 10/19/20 24 10/19/2024 CBC W/ AUTO DIFF eosinophil # 0.05 K/uL Not Available [facility] (Pre-Op [facility]) [address] [facility] [place], [address], 10/19/2024 17:50:36 10/19/20 24 10/19/2024 CBC W/ AUTO DIFF basophil # 0.09 K/uL Not Available [facility] (Pre-Op Clinic) [address] [place] [address] [place], [address], 10/19/2024 17:50:36 10/19/20 24 10/19/2024 CBC W/ AUTO DIFF immature gramulocytes # 0.03 K/uL Not Available [facility] (Pre-Op Clinic) [address] [place] [address] [place], [address], 10/19/2024 17:50:36 10/19/20 24 10/19/2024 CBC W/ AUTO DIFF nucleated red blood cells # 0.00 k/uL Not Available [facility] (Pre-Op Clinic) [address] [place] [address] [place], [address], 10/19/2024 17:50:36 10/19/20 24 10/19/2024 CBC W/ AUTO DIFF manual differential NO Not Available [facility] (Pre-Op Clinic) [address] [place] [address] [place], [address], 10/19/2024 17:50:36 10/19/20 24 10/19/2024 CBC W/ AUTO DIFF note Unles s other velasquez noted testi ng perfo [facility]med at: [facility] [address] [place] [address] Anish vigil MD Not Available [facility] (Pre[facility]Op [facility]) [address] [place] [address] [place], [address], 10/19/2024 17:50:36 10/19/20 24 10/19/2024 NT-OR O BNP (N-TE RMINA L) nt-probnp (N-terminal) 196.0 pg/mL 0-900 Not Available [facility] (Pre-Op Clinic) [address] [place] [address] [place], [address], 10/19/2024 18:41:38 10/19/20 24 10/19/2024 NT-OR O BNP (N-TE RMINA L) note Unles s other velasquez noted testi ng perfo [facility]med at: [facility] [address] [place] [address] Anish vigil MD Not Available [facility] (Pre[facility]Op [facility]) [address] [place] [address] [place], [address], 10/19/2024 18:41:38 10/19/20 24 10/19/2024 ALPHA 1 ANTIT RYP TOTAL note Unlchristina vigil other velasquez noted testi ng perfo rmed at: [facility] [address] [place] [address] Anish vigil MD Not Available [facility] (Pre-Op Clinic) [address] [place] [address] [place], [address], 10/24/2024 13:09:31 10/19/20 24 10/24/2024 ALPHA 1 ANTIT RYP TOTAL iwawu-3-bhna trypsin, serum 153 mg/dL 101-18 7 Not Available [facility] (Pre-Op Clinic) [address] [place] [address] [place], [address], 10/24/2024 13:09:31 10/19/20 24 10/24/2024 ALPHA 1 ANTIT RYP TOTAL phenotype (pi) MM [facility]: [facility] [address] [id number] Lab Direc tor: Elmer matute PhD, Phone : [phone] Perfo rmed at: - [facility] [address] [place] [address] Lab Direc tor: Dee duran MD, Phone : [phone] MM Pheno type is consi dered to be norm al , produ cing ana l serum level s of alpha -1-pr oteas e inhib itor and not assoc iated with clini milly disea se. Assoc iated A1A total serum level s in other pheno types and their incid ence in the gener al popul ation are shown in the table below . Pheno type Popul ation % funct ion A-1-A T Conc. * Incid ence % ru red to MM (Typi milly Range ) MM 86.5% 100% (96 - 189) MS 8.0% 86% (83 - 161) MZ 3.9% 61% (60 - 111) FM 0.4% 100% (93 - 191) SZ 0.3% 41% (42 - 75) SS 0.1% 64% (62 - 119) ZZ 0.05% 19% (16 - 38) FS 0.05% 70% (70 - 128) FZ Unkno wn 46% (44 - 88) FF Unkno wn Unkno wn *A-1- AT geoffrey ntrat ion in the homoz ygous MM pheno type is taken as the refer ence ana l. Perce nt defic iency in each pheno type is repor shannen relat roger to this refer ence. Range s used to confi rm pheno type. Perfo rmed at: CB - [facility] [address] [place] [address] Lab Direc tor: Elmer matute PhD, Phone : [phone] Perfo rmed at: BN - [facility] [address] [place] [address] Lab Direc tor: Dee duran MD, Phone : [phone] Not Available [facility] (Pre-Op Clinic) [address] [place] [address] [place], [address], 10/24/2024 13:09:31 10/19/20 24 10/19/2024 IGE IMMUN OGLOB ULINS QUANT note Unles s other velasquez noted testi ng perfo rmed at: [facility] [address] [place] [address] Anish vigil MD Not Available [facility] (Pre-Op [facility]) [address] [place] [address] [place], [address], 10/25/2024 16:16:03 10/19/20 24 10/25/2024 IGE IMMUN OGLOB ULINS QUANT immunoglobul in E, total 60 IU/mL 6-495 Perfo rmed at: BN - [facility] [place] [address] [facility] , [place] [address] Lab Direc tor: Dee duran MD, Phone : [phone] Not Available [facility] (Pre-Op Clinic) [address] [place] [address] [place], [address], 10/25/2024 16:16:03 01/25/20 25 01/25/2025 CBC AUTO W DIFF WBC 6.5 10 4.5-11 .5 Not Available [facility] (Lab Registration) [address] [place], [address], 01/25/2025 16:35:51 01/25/20 25 01/25/2025 CBC AUTO W DIFF RBC 4.70 10 4.25-5 .57 Not Available [facility] (Lab Registration) [address] [place], [address], 01/25/2025 16:35:51 01/25/20 25 01/25/2025 CBC AUTO W DIFF HGB 12.5 g/dL 12.0-1 5.7 Not Available [facility] (Lab Registration) [address] [place], [address], 01/25/2025 16:35:51 01/25/20 25 01/25/2025 CBC AUTO W DIFF HCT 40.0 % 36.0-4 7.0 Not Available [facility] (Lab Registration) [address] [place], [address], 01/25/2025 16:35:51 01/25/20 25 01/25/2025 CBC AUTO W DIFF MCV 85.1 fL 80-95 Not Available [facility] (Lab Registration) [address] [place], [address], 01/25/2025 16:35:51 01/25/20 25 01/25/2025 CBC AUTO W DIFF MCH 26.6 pg 27.0-3 4.0 low Not Available [facility] (Lab Registration) [address] [place], [address], 01/25/2025 16:35:51 01/25/20 25 01/25/2025 CBC AUTO W DIFF MCHC 31.3 g/dL 32.0-3 6.0 low Not Available [facility] (Lab Registration) [address] [place], [address], 01/25/2025 16:35:51 01/25/20 25 01/25/2025 CBC AUTO W DIFF platelet count 266 10 150-45 0 Not Available [facility] (Lab Registration) [address] [place], [address], 01/25/2025 16:35:51 01/25/20 25 01/25/2025 CBC AUTO W DIFF RDW 15.8 % 12.3-1 5.1 high Not Available [facility] (Lab Registration) [address] [place], [address], 01/25/2025 16:35:51 01/25/20 25 01/25/2025 CBC AUTO W DIFF MPV 12.7 fL 7.4-10 .4 high Not Available [facility] (Lab Registration) [address] [place], [address], 01/25/2025 16:35:51 01/25/20 25 01/25/2025 CBC AUTO W DIFF granulocyte% 62.8 % 40-75 Not Available [facility] (Lab Registration) [address] [place], [address], 01/25/2025 16:35:51 01/25/20 25 01/25/2025 CBC AUTO W DIFF lymphocyte% 23.4 % 15-57 Not Available [facility] (Lab Registration) [address] [place], [address], 01/25/2025 16:35:51 01/25/20 25 01/25/2025 CBC AUTO W DIFF monocyte% 9.3 % 4.0-12 .0 Not Available [facility] (Lab Registration) [address] [place], [address], 01/25/2025 16:35:51 01/25/20 25 01/25/2025 CBC AUTO W DIFF eosinophil% 3.4 % 0.0-4. 0 Not Available [facility] (Lab Registration) [address] [place], [address], 01/25/2025 16:35:51 01/25/20 25 01/25/2025 CBC AUTO W DIFF basophil% 0.9 % 0.0-1. 0 Not Available [facility] (Lab Registration) [address] [place], [address], 01/25/2025 16:35:51 01/25/20 25 01/25/2025 CBC AUTO W DIFF immature granulocytes % 0.2 % 0.0-0. 8 Not Available [facility] (Lab Registration) [address] [place], [address], 01/25/2025 16:35:51 01/25/20 25 01/25/2025 CBC AUTO W DIFF granulocyte# 4.06 10 Not Available [facility] (Lab Registration) [address] [place], [address], 01/25/2025 16:35:51 01/25/20 25 01/25/2025 CBC AUTO W DIFF lymphocyte# 1.51 10 Not Available [facility] (Lab Registration) [address] [place], [address], 01/25/2025 16:35:51 01/25/20 25 01/25/2025 CBC AUTO W DIFF monocyte# 0.60 10 Not Available [facility] (Lab Registration) [address], [place], [address], 01/25/2025 16:35:51 01/25/20 25 01/25/2025 CBC AUTO W DIFF eosinophil# 0.22 10 Not Available [facility] (Lab Registration) [address] [place], [address], 01/25/2025 16:35:51 01/25/20 25 01/25/2025 CBC AUTO W DIFF basophil# 0.06 10 Not Available [facility] (Lab Registration) [address] [place], [address], 01/25/2025 16:35:51 01/25/20 25 01/25/2025 CBC AUTO W DIFF immature granulocytes # 0.01 10 Not Available [facility] (Lab Registration) [address] [place], [address], 01/25/2025 16:35:51 01/25/20 25 01/25/2025 CBC AUTO W DIFF manual differential NO Not Available [facility] (Lab Registration) [address] [place], [address], 01/25/2025 16:35:51 01/25/20 25 01/25/2025 CBC AUTO W DIFF note Unles s other velasquez noted testi ng perfo rmed at: [facility] [address] [place] [address] [phone] Anish vigil MD CLIA: [id number] Not Available [facility] (Lab Registration) [address] [place], [address], 01/25/2025 16:35:51 01/25/20 25 01/25/2025 HEMOG LOBIN A1C glycosylated hemoglobin A1C 7.0 % 4.5-6. 2 high Not Available [facility] (Lab Registration) [address] , [place], [address], 01/25/2025 16:55:29 01/25/20 25 01/25/2025 HEMOG LOBIN A1C estimated average glucose 154 mg/dL 82-131 high Not Available [facility] (Lab Registration) [address] [place], [address], 01/25/2025 16:55:29 01/25/20 25 01/25/2025 HEMOG LOBIN A1C note Tae s other velasquez noted testi ng perfo rmed at: [facility] [address] [place] [address] [phone] Anish vigil MD CLIA: [id number] Not Available [facility] (Lab Registration) [address] [place], [address], 01/25/2025 16:55:29 01/25/20 25 01/25/2025 THYRO ID STIMU LATIN G HORMO NE thyroid stimulating hormone 2.89 mIU/m L 0.34-4 .80 Not Available [facility] (Lab Registration) [address] [place], [address], 01/25/2025 16:56:31 01/25/20 25 01/25/2025 THYRO ID STIMU LATIN G HORMO NE note Tae velasquez noted testi ng perfo rmed at: [facility] [address] [place] [address] [phone] Anish vigil MD CLIA: [id number] Not Available [facility] (Lab Registration) [address] [place], [address], 01/25/2025 16:56:31 01/25/20 25 01/25/2025 LIPID PANEL triglyceride 60 mg/dL 20-200 The Natio nal Odilia stero l Educa tion Progr am (NCEP ) has set the follo wing guide lines for Fasti ng Trigl yceri loida: ANA L: <150 mg/dL BORDE RLINE HIGH: 150 - 199 mg/dL HIGH: 200 - 499 mg/dL VERY HIGH: > or =500 mg/dL Not Available [facility] (Lab Registration) [address] [place], [address], 01/25/2025 16:56:33 01/25/20 25 01/25/2025 LIPID PANEL cholesterol 163 mg/dL 0-200 The Natio nal Odilia stero l Educa tion Progr am (NCEP ) has set the follo wing guide lines for Fasti ng Odilia stero l: NISHA ABLE: <200 mg/dL BORDE RLINE HIGH: 200 - 239 mg/dL HIGH: > or =240 mg/dL Not Available [facility] (Lab Registration) [address] [place], [address], 01/25/2025 16:56:33 01/25/20 25 01/25/2025 LIPID PANEL HDL cholesterol 58 mg/dL 60- low The Natio nal Odilia stero l Educa tion Progr am (NCEP ) has set the follo wing guide lines for Fasti ng HDL Odilia stero l: LOW HDL: <40 mg/dL ANA L: 40 - 60 mg/dL NISHA ABLE: >60 mg/dL Not Available [facility] (Lab Registration) [address] [place], [address], 01/25/2025 16:56:33 01/25/20 25 01/25/2025 LIPID PANEL LDL calculated 93 mg/dL 100- low The Natio nal Odilia stero l Educa tion Progr am (NCEP ) has set the follo wing guide lines for Fasti ng LDL Odilia stero l: OPTIM AL: < 100 mg/dL LOW RISK: 100 - 129 mg/dL BORDE RLINE HIGH: 130 - 159 mg/dL HIGH: 160 - 189 mg/dL VERY HIGH: > or = 190 mg/dL Not Available [facility] (Lab Registration) [address] [place], [address], 01/25/2025 16:56:33 01/25/20 25 01/25/2025 LIPID PANEL chol/HDL ratio 3 -5 Not Available [facility] (Lab Registration) [address] [place], [address], 01/25/2025 16:56:33 01/25/20 25 01/25/2025 LIPID PANEL note Unles s other velasquez noted testi ng perfo [facility]med at: [facility] [address] [place] [address] [phone] Anish vigil MD CLIA: [id number] Not Available [facility] (Lab Registration) [address] [place], [address], 01/25/2025 16:56:33 01/25/20 25 01/25/2025 COMP METAB OLIC PANEL sodium 143 mmol/ L 136-14 5 Not Available [facility] (Lab Registration) [address] [place], [address], 01/25/2025 16:56:35 01/25/20 25 01/25/2025 COMP METAB OLIC PANEL potassium 4.4 mmol/ L 3.5-5. 1 Not Available [facility] (Lab Registration) [address] [place], [address], 01/25/2025 16:56:35 01/25/20 25 01/25/2025 COMP METAB OLIC PANEL chloride 105 mmol/ L 98-107 Not Available [facility] (Lab Registration) [address] [place], [address], 01/25/2025 16:56:35 01/25/20 25 01/25/2025 COMP METAB OLIC PANEL carbon dioxide 30 mmol/ L 21-32 Not Available [facility] (Lab Registration) [address] [place], [address], 01/25/2025 16:56:35 01/25/20 25 01/25/2025 COMP METAB OLIC PANEL anion gap 8.0 Not Available [facility] (Lab Registration) [address], [place], [address], 01/25/2025 16:56:35 01/25/20 25 01/25/2025 COMP METAB OLIC PANEL glucose 150 mg/dL 70-110 high Not Available [facility] (Lab Registration) [address], [place], [address], 01/25/2025 16:56:35 01/25/2001/25/2025 COMP METAB OLIC PANEL blood urea nitrogen 11 mg/dL 7-18 Not Available [facility] (Lab Registration) [address], [place], [address], 01/25/2025 16:56:35 01/25/20 25 01/25/2025 COMP METAB OLIC PANEL creatinine 0.9 mg/dL 0.6-1. 0 Not Available [facility] (Lab Registration) [address] [place], [address], 01/25/2025 16:56:35 01/25/20 25 01/25/2025 COMP METAB OLIC PANEL BUN/creatini ne ratio 12.2 9-21 Not Available [facility] (Lab Registration) [address], [place], [address], 01/25/2025 16:56:35 01/25/20 25 01/25/2025 COMP METAB OLIC PANEL estimated glom filtration rate 67 mL/mi n >60- GFR LIMIT ATION : The eGFR equat ion CKD-E PI 2020 is not appli cable for pedia tric patie nts or great er than 90 years of age. The follo wing condi tions may alter the GFR resul t: extre mes in body size, malnu triti on or obesi ty, skele haylie muscl e disea se, parap legia or quadr ipleg ia, veget francy diet or rapid ly castanon ing kiney funct ion. Not Available [facility] (Lab Registration) [address] [place], [address], 01/25/2025 16:56:35 01/25/20 25 01/25/2025 COMP METAB OLIC PANEL total protein 7.1 g/dL 6.4-8. 2 Not Available [facility] (Lab Registration) [address] [place], [address], 01/25/2025 16:56:35 01/25/20 25 01/25/2025 COMP METAB OLIC PANEL albumin 3.8 g/dL 3.4-5. 0 Not Available [facility] (Lab Registration) [address] [place], [address], 01/25/2025 16:56:35 01/25/20 25 01/25/2025 COMP METAB OLIC PANEL calcium 9.5 mg/dL 8.5-10 .1 Not Available [facility] (Lab Registration) [address] [place], [address], 01/25/2025 16:56:35 01/25/20 25 01/25/2025 COMP METAB OLIC PANEL corrected calcium 9.7 mg/dL 8.5-10 .1 Not Available [facility] (Lab Registration) [address] [place], [address], 01/25/2025 16:56:35 01/25/20 25 01/25/2025 COMP METAB OLIC PANEL bilirubin total 0.4 mg/dL 0.4-1. 5 Not Available [facility] (Lab Registration) [address] [place], [address], 01/25/2025 16:56:35 01/25/20 25 01/25/2025 COMP METAB OLIC PANEL AST (SGOT) 21 U/L 15-37 Not Available [facility] (Lab Registration) [address] [place], [address], 01/25/2025 16:56:35 01/25/20 25 01/25/2025 COMP METAB OLIC PANEL ALT (SGPT) 29 U/L 12-78 Not Available [facility] (Lab Registration) [address] [place], [address], 01/25/2025 16:56:35 01/25/20 25 01/25/2025 COMP METAB OLIC PANEL alk phosphatase 94 U/L 53-141 Not Available [facility] (Lab Registration) [address] [place], [address], 01/25/2025 16:56:35 01/25/20 25 01/25/2025 COMP METAB OLIC PANEL note Unles s other velasquez noted testi ng perfo rmed at: [facility] [address] [place] [address] [phone] Anish vigil MD CLIA: [id number] Not Available [facility] (Lab Registration) [address] [place], [address], 01/25/2025 16:56:35 03/01/20 25 03/01/2025 CREAT ININE URINE creatinine urine 37.0 mg/dL 30-125 Not Available [facility] (Lab Registration) [address] [place], [address], 03/01/2025 13:52:12 03/01/20 25 03/01/2025 CREAT ININE URINE note Unles s other velasquez noted testi ng perfo rmed at: [facility] [address] [place] [address] [phone] Anish ivgil MD CLIA: [id number] Not Available [facility] (Lab Registration) [address] [place], [address], 03/01/2025 13:52:12 03/01/20 25 03/01/2025 CBC AUTO W DIFF WBC 7.8 10 4.5-11 .5 Not Available [facility] (Lab Registration) [address] [place], [address], 03/01/2025 13:52:14 03/01/20 25 03/01/2025 CBC AUTO W DIFF RBC 4.63 10 4.25-5 .57 Not Available [facility] (Lab Registration) [address] [place], [address], 03/01/2025 13:52:14 03/01/20 25 03/01/2025 CBC AUTO W DIFF HGB 12.7 g/dL 12.0-1 5.7 Not Available [facility] (Lab Registration) [address] [place], [address], 03/01/2025 13:52:14 03/01/20 25 03/01/2025 CBC AUTO W DIFF HCT 40.0 % 36.0-4 7.0 Not Available [facility] (Lab Registration) [address] [place], [address], 03/01/2025 13:52:14 03/01/20 25 03/01/2025 CBC AUTO W DIFF MCV 86.4 fL 80-95 Not Available [facility] (Lab Registration) [address] [place], [address], 03/01/2025 13:52:14 03/01/20 25 03/01/2025 CBC AUTO W DIFF MCH 27.4 pg 27.0-3 4.0 Not Available [facility] (Lab Registration) [address] [place], [address], 03/01/2025 13:52:14 03/01/20 25 03/01/2025 CBC AUTO W DIFF MCHC 31.8 g/dL 32.0-3 6.0 low Not Available [facility] (Lab Registration) [address] [place], [address], 03/01/2025 13:52:14 03/01/20 25 03/01/2025 CBC AUTO W DIFF platelet count 291 10 150-45 0 Not Available [facility] (Lab Registration) [address] [place], [address], 03/01/2025 13:52:14 03/01/20 25 03/01/2025 CBC AUTO W DIFF RDW 16.6 % 12.3-1 5.1 high Not Available [facility] (Lab Registration) [address] [place], [address], 03/01/2025 13:52:14 03/01/20 25 03/01/2025 CBC AUTO W DIFF MPV 12.9 fL 7.4-10 .4 high Not Available [facility] (Lab Registration) [address] [place], [address], 03/01/2025 13:52:14 03/01/20 25 03/01/2025 CBC AUTO W DIFF granulocyte% 63.2 % 40-75 Not Available [facility] (Lab Registration) [address] [place], [address], 03/01/2025 13:52:14 03/01/20 25 03/01/2025 CBC AUTO W DIFF lymphocyte% 24.0 % 15-57 Not Available [facility] (Lab Registration) [address] [place], [address], 03/01/2025 13:52:14 03/01/20 25 03/01/2025 CBC AUTO W DIFF monocyte% 9.4 % 4.0-12 .0 Not Available [facility] (Lab Registration) [address] [place], [address], 03/01/2025 13:52:14 03/01/20 25 03/01/2025 CBC AUTO W DIFF eosinophil% 2.1 % 0.0-4. 0 Not Available [facility] (Lab Registration) [address] [place], [address], 03/01/2025 13:52:14 03/01/20 25 03/01/2025 CBC AUTO W DIFF basophil% 1.2 % 0.0-1. 0 high Not Available [facility] (Lab Registration) [address] [place], [address], 03/01/2025 13:52:14 03/01/20 25 03/01/2025 CBC AUTO W DIFF immature granulocytes % 0.1 % 0.0-0. 8 Not Available [facility] (Lab Registration) [address] [place], [address], 03/01/2025 13:52:14 03/01/20 25 03/01/2025 CBC AUTO W DIFF granulocyte# 4.91 10 Not Available [facility] (Lab Registration) [address] [place], [address], 03/01/2025 13:52:14 03/01/20 25 03/01/2025 CBC AUTO W DIFF lymphocyte# 1.86 10 Not Available [facility] (Lab Registration) [address] [place], [address], 03/01/2025 13:52:14 03/01/20 25 03/01/2025 CBC AUTO W DIFF monocyte# 0.73 10 Not Available [facility] (Lab Registration) [address] [place], [address], 03/01/2025 13:52:14 03/01/20 25 03/01/2025 CBC AUTO W DIFF eosinophil# 0.16 10 Not Available [facility] (Lab Registration) [address] [place], [address], 03/01/2025 13:52:14 03/01/20 25 03/01/2025 CBC AUTO W DIFF basophil# 0.09 10 Not Available [facility] (Lab Registration) [address] [place], [address], 03/01/2025 13:52:14 03/01/20 25 03/01/2025 CBC AUTO W DIFF immature granulocytes # 0.01 10 Not Available [facility] (Lab Registration) [address] [place], [address], 03/01/2025 13:52:14 03/01/20 25 03/01/2025 CBC AUTO W DIFF manual differential NO Not Available [facility] (Lab Registration) [address] [place], [address], 03/01/2025 13:52:14 03/01/20 25 03/01/2025 CBC AUTO W DIFF note Unles s other velasquez noted testi ng perfo rmed at: [facility] [address] [place] [address] [phone] Anish vigil MD CLIA: [id number] Not Available [facility] (Lab Registration) [address] [place], [address], 03/01/2025 13:52:14 03/01/20 25 03/01/2025 HEMOG LOBIN A1C glycosylated hemoglobin A1C 6.6 % 4.5-6. 2 high Not Available [facility] (Lab Registration) [address] [place], [address], 03/01/2025 13:56:41 03/01/20 25 03/01/2025 HEMOG LOBIN A1C estimated average glucose 143 mg/dL 82-131 high Not Available [facility] (Lab Registration) [address] [place], [address], 03/01/2025 13:56:41 03/01/20 25 03/01/2025 HEMOG LOBIN A1C note Tae vigil other velasquez noted testi ng perfo rmed at: [facility] [address] [place] [address] [phone] Anish vigil MD CLIA: [id number] Not Available [facility] (Lab Registration) [address] [place], [address], 03/01/2025 13:56:41 03/01/20 25 03/01/2025 THYRO ID STIMU LATIN G HORMO NE thyroid stimulating hormone 3.93 mIU/m L 0.34-4 .80 Not Available [facility] (Lab Registration) [address], [place], [address], 03/01/2025 14:17:45 03/01/20 25 03/01/2025 THYRO ID STIMU LATIN G HORMO NE note Unles s other velasquez noted testi ng perfo rmed at: [facility] [address] [facility] [place] [address] [phone] Anish vigil MD CLIA: [id number] Not Available [facility] (Lab Registration) [address] [place], [address], 03/01/2025 14:17:45 03/01/20 25 03/01/2025 COMP METAB OLIC PANEL sodium 135 mmol/ L 136-14 5 low Not Available [facility] (Lab Registration) [address] [place], [address], 03/01/2025 14:17:48 03/01/20 25 03/01/2025 COMP METAB OLIC PANEL potassium 4.7 mmol/ L 3.5-5. 1 Not Available [facility] (Lab Registration) [address] [place], [address], 03/01/2025 14:17:48 03/01/20 25 03/01/2025 COMP METAB OLIC PANEL chloride 99 mmol/ L 98-107 Not Available [facility] (Lab Registration) [address] [place], [address], 03/01/2025 14:17:48 03/01/20 25 03/01/2025 COMP METAB OLIC PANEL carbon dioxide 29 mmol/ L 21-32 Not Available [facility] (Lab Registration) [address] [place], [address], 03/01/2025 14:17:48 03/01/20 25 03/01/2025 COMP METAB OLIC PANEL anion gap 7.0 Not Available [facility] (Lab Registration) [address], [place], [address], 03/01/2025 14:17:48 03/01/20 25 03/01/2025 COMP METAB OLIC PANEL glucose 124 mg/dL 70-110 high Not Available [facility] (Lab Registration) [address] [place], [address], 03/01/2025 14:17:48 03/01/20 25 03/01/2025 COMP METAB OLIC PANEL blood urea nitrogen 16 mg/dL 7-18 Not Available [facility] (Lab Registration) [address], [place], [address], 03/01/2025 14:17:48 03/01/20 25 03/01/2025 COMP METAB OLIC PANEL creatinine 1.1 mg/dL 0.6-1. 0 high Not Available [facility] (Lab Registration) [address], [place], [address], 03/01/2025 14:17:48 03/01/20 25 03/01/2025 COMP METAB OLIC PANEL BUN/creatini ne ratio 14.5 9-21 Not Available [facility] (Lab Registration) [address], [place], [address], 03/01/2025 14:17:48 03/01/20 25 03/01/2025 COMP METAB OLIC PANEL estimated glom filtration rate 52 mL/mi n >60- low GFR LIMIT ATION : The eGFR equat ion CKD-E PI 2020 is not appli cable for pedia tric patie nts or great er than 90 years of age. The follo wing condi tions may alter the GFR resul t: extre mes in body size, malnu triti on or obesi ty, skele haylie muscl e disea se, parap legia or quadr ipleg ia, veget francy diet or rapid ly castanon ing kiney funct ion. Not Available [facility] (Lab Registration) [address], [place], [address], 03/01/2025 14:17:48 03/01/20 25 03/01/2025 COMP METAB OLIC PANEL osmolality (calculated) 284 mOsm/ kg 275-30 1 OSMOL ALITY IS A CALCU LATIO N UTILI ZING THE SERUM /PLAS MA SODIU M, GLUCO SE AND UREA NITRO GEN (BUN) LEVEL S. FOR THE MOST ACCUR ATE RESUL T A MEASU RED SERUM OSMOL ALITY IS SUGGE STED. Not Available [facility] (Lab Registration) [address], [place], [address], 03/01/2025 14:17:48 03/01/20 25 03/01/2025 COMP METAB OLIC PANEL total protein 7.7 g/dL 6.4-8. 2 Not Available [facility] (Lab Registration) [address] [place], [address], 03/01/2025 14:17:48 03/01/20 25 03/01/2025 COMP METAB OLIC PANEL albumin 3.9 g/dL 3.4-5. 0 Not Available [facility] (Lab Registration) [address] [place], [address], 03/01/2025 14:17:48 03/01/20 25 03/01/2025 COMP METAB OLIC PANEL calcium 10.0 mg/dL 8.5-10 .1 Not Available [facility] (Lab Registration) [address] [place], [address], 03/01/2025 14:17:48 03/01/20 25 03/01/2025 COMP METAB OLIC PANEL corrected calcium 10.1 mg/dL 8.5-10 .1 Not Available [facility] (Lab Registration) [address] [place], [address], 03/01/2025 14:17:48 03/01/20 25 03/01/2025 COMP METAB OLIC PANEL bilirubin total 0.3 mg/dL 0.4-1. 5 low Not Available [facility] (Lab Registration) [address] [place], [address], 03/01/2025 14:17:48 03/01/20 25 03/01/2025 COMP METAB OLIC PANEL AST (SGOT) 23 U/L 15-37 Not Available [facility] (Lab Registration) [address] [place], [address], 03/01/2025 14:17:48 03/01/20 25 03/01/2025 COMP METAB OLIC PANEL ALT (SGPT) 35 U/L 12-78 Not Available [facility] (Lab Registration) [address] [place], [address], 03/01/2025 14:17:48 03/01/20 25 03/01/2025 COMP METAB OLIC PANEL alk phosphatase 99 U/L 53-141 Not Available [facility] (Lab Registration) [address] [place], [address], 03/01/2025 14:17:48 03/01/20 25 03/01/2025 COMP METAB OLIC PANEL note Unles s other velasquez noted testi ng perfo rmed at: [facility] [address] [place] [address] [phone] Anish vigil MD CLIA: [id number] Not Available [facility] (Lab Registration) [address] [place], [address], 03/01/2025 14:17:48 03/01/20 25 03/01/2025 LIPID PANEL triglyceride 57 mg/dL 20-200 The Natio nal Odilia stero l Educa tion Progr am (NCEP ) has set the follo wing guide lines for Fasti ng Trigl yceri loida: ANA L: <150 mg/dL BORDE RLINE HIGH: 150 - 199 mg/dL HIGH: 200 - 499 mg/dL VERY HIGH: > or =500 mg/dL Not Available [facility] (Lab Registration) [address] [place], [address], 03/01/2025 14:17:49 03/01/20 25 03/01/2025 LIPID PANEL cholesterol 168 mg/dL 0-200 The Natio nal Odilia stero l Educa tion Progr am ([facility] ) has set the follo wing guide lines for Fasti ng Odilia stero l: NISHA ABLE: <200 mg/dL BORDE RLINE HIGH: 200 - 239 mg/dL HIGH: > or =240 mg/dL Not Available [facility] (Lab Registration) [address], [place], [address], 03/01/2025 14:17:49 03/01/20 25 03/01/2025 LIPID PANEL HDL cholesterol 60 mg/dL 60- The Natio nal Odilia stero l Educa tion Progr am ([facility] ) has set the follo wing guide lines for Fasti ng HDL Odilia stero l: LOW HDL: <40 mg/dL ANA L: 40 - 60 mg/dL NISHA ABLE: >60 mg/dL Not Available [facility] (Lab Registration) [address] [place], [address], 03/01/2025 14:17:49 03/01/20 25 03/01/2025 LIPID PANEL LDL calculated 97 mg/dL 100- low The Natio nal Odilia stero l Educa tion Progr am ([facility] ) has set the follo wing guide lines for Fasti ng LDL Odilia stero l: OPTIM AL: < 100 mg/dL LOW RISK: 100 - 129 mg/dL BORDE RLINE HIGH: 130 - 159 mg/dL HIGH: 160 - 189 mg/dL VERY HIGH: > or = 190 mg/dL Not Available [facility] (Lab Registration) [address] [place], [address], 03/01/2025 14:17:49 03/01/20 25 03/01/2025 LIPID PANEL chol/HDL ratio 3 -5 Not Available [facility] (Lab Registration) [address] [place], [address], 03/01/2025 14:17:49 03/01/20 25 03/01/2025 LIPID PANEL note Unles s other velasquez noted testi ng perfo rmed at: [facility] [address] [place] [address] [phone] Anish vigil MD CLIA: [id number] Not Available [facility] (Lab Registration) [address], [place], [address], 03/01/2025 14:17:49 03/01/20 25 03/01/2025 MICRO ALBUM IN RANDO M URINE microalbumin random <1.3 mcg/m L 1.3-17 .0 Not Available [facility] (Lab Registration) [address], [place], [address], 03/01/2025 14:19:53 03/01/20 25 03/01/2025 MICRO ALBUM IN RANDO M URINE note Tae calvo velasquez noted testi ng perfo rmed at: [facility] [address] [place] [address] [phone] Anish vigil MD CLIA: [id number] Not Available [facility] (Lab Registration) [address] [place], [address], 03/01/2025 14:19:53 12/21/19 25 12/21/2024 LDCT, chest , for lung cance r scree lulu No observ ation record ed. [facility] (Radiology) [address] [place], [address], 12/22/2024 09:45:09 12/21/19 25 12/21/2024 LDCT, chest , for lung cance r scree lulu No observ ation record ed. [facility] (Scheduling) [address] [place], [address], 12/22/2024 09:45:10 02/16/20 25 02/15/2025 imagi ng inter preta tion No observ ation record ed. [facility] (Registration ) [address] [place] [address] [place], [address], 02/15/2025 16:08:45 03/02/2002/16/2025 compl ete PFT* No observ ation record ed. [facility] (Sleep Lab) [address] [place], [address], 03/03/2025 08:17:15 03/07/20 25 05/27/2023 XR, chest , 2 view No observ ation record ed. [address] (Radiology) [address] [place], [address], 03/07/2025 11:16:12 03/07/20 25 12/11/2023 LDCT, chest , for lung cance r scree lulu No observ ation record ed. [address] (Radiology) [address] [place] [address] [place], [address], 03/07/2025 11:15:54 03/07/20 25 05/17/2024 XR, chest , 2 view No observ ation record ed. [address] (Radiology) [address] [place] [address] [place], [address], 03/07/2025 11:15:41 03/07/20 25 12/21/2024 LDCT, chest , for lung cance r scree lulu No observ ation record ed. [facility] (Radiology) [address] [place], [address], 03/07/2025 11:14:12 03/07/20 25 02/16/2025 compl ete PFT* No observ ation record ed. [facility] [address] [place], [address], 03/07/2025 15:34:53 Result Notes None recorded. Problems Name Problem SNOMED Code Status Onset Date Resolution Date Notes Provider Name and Address Organization Details Recorded Time Malignant neoplasm of female breast 335365893 Active Manuel Underwood null, MEGAN - LPNT - [facility] & [place] 4 09:33:45 Simple chronic bronchitis 66368830 Active Manuel Underwood null, MEGAN [place] LPNT - [facility] & [place] 4 09:34:12 Patient encounter status 082458657 Active Manuel Underwood null, MEGAN [place] LPNT - [facility] & [place] 4 09:34:04 Paresthesi a 90564770 Active Manuel Underwood null, [place] - LPNT - [facility] & [place] 4 09:34:01 Allergic bronchitis 204651018 Active Manuel Underwood null, [place] - LPNT - [facility] & [place] 4 09:32:37 History of malignant neoplasm of breast 636388912 Active Manuel Underwood null, MEGAN [place] LPNT [facility] & [place] 4 09:33:32 Bronchitis 73949102 Active Manuel Underwood null, MEGAN [place] LPNT [facility] & 4 09:32:40 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 Active Manuel Underwood null, MEGAN [place] LPNT [facility] & [place] 4 09:33:58 Chronic diarrhea 125800656 Active Manuel Underwood null, MEGAN [place] LPNT - [facility] & 4 09:32:54 Anemia 619881194 Active Not Available [facility] 4 07:59:57 Mixed hyperlipid emia 389677661 Active Not Available [facility] 4 07:59:57 Hematochez ia 267436577 Active Manuel Underwood null, MEGAN [place] LPNT [facility] & 4 09:33:28 Iron deficiency anemia 94684334 Active Manuel Underwood null, [place] - LPNT - [facility] & [place] 4 09:33:41 Acute bronchitis 96017846 Active Manuel Underwood null, [place] - LPNT - [facility] & [place] 4 09:32:22 Acute maxillary sinusitis 21073144 Active Manuel Underwood null, MEGAN - LPNT - [facility] & [place] 4 09:32:31 Diabetes mellitus 03357474 Active Manuel Underwood null, [place]GAN - LPNT - [facility] & [place] 4 09:33:03 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 39427694 Active Not Available [facility] 4 07:59:57 Edema 907315505 Active Manuel Underwood null, [place] - LPNT - [facility] & [place] 4 09:33:18 Chronic obstructiv e pulmonary disease 48704322 Active Not Available [facility] 4 07:59:57 Tobacco user 398869273 Active Manuel Underwood null, MEGAN - LPNT - [facility] & [place] 4 09:34:20 Seasonal allergic rhinitis 610550584 Active Manuel Underwood null, MEGAN - LPNT - [facility] & [place] 4 09:34:08 Carpal tunnel syndrome of left wrist 2196820645541 02 Active Manuel Underwood null, MEGAN - LPNT - [facility] & [place] 4 09:32:44 Type 2 diabetes mellitus without complicati on 039032138 Active Not Available [facility] 4 07:59:57 Hyperlipid emia 47592911 Active Manuel Underwood null, MEGAN - LPNT - [facility] & [place] 4 09:33:36 Acute exacerbati on of chronic obstructiv e pulmonary disease 359618924 Active Manuel Underwood null, MEGAN - LPNT - [facility] & [place] 4 09:32:25 Gastroesop hageal reflux disease without esophagiti s 269251826 Active Not Available [facility] 4 07:59:57 Fecal occult blood: positive Active Manuel Underwood null, MEGAN - LPNT - [facility] & [place] 4 09:33:25 Vaccinatio n given 095755133 Active Manuel Underwood null, [place]GAN - LPNT - [facility] & [place] 4 09:34:25 Chronic bronchitis 22234889 Active 2022 Manuel Underwood null, [place] - [place] - [place] & [place] 4 09:32:48 Dyspnea on exertion 07355991 Active 2022 MEGAN [place] - LPNT - [place] & [place] 4 09:33:14 Tobacco dependence caused by cigarettes 0487283286004 9107 Active 2022 MEGAN [place] - [facility] - [facility] & [place] 4 09:34:16 Problem Notes None recorded. Procedures Surgical History Date Name Laterality Status Provider Name and Address Organization Details Recorded Time 2024 Medicare Annual Wellness Visit Health Risk Assessment completed Yue Loihugoi [place] - [place] - [facility] & [place] 5 08:17:15 2023 completed Milka Morfin [place] - [place] - [facility] & [place] 4 15:56:21 2023 Most Recent Bone Density completed Milka Morfin [place] - [place] - [facility] & [place] 4 15:56:21 2023 Medicare Annual Wellness Visit Health Risk Assessment completed Yue Monsivaisdini [place] - [place] - [facility] & [place] 4 08:50:39 2021 Medicare Annual Wellness Visit Health Risk Assessment completed Yue Monsivaisdini [place] - [place] - [facility] & [place] 2 08:21:17 2018 Date of Last Colonoscopy completed Milka Morfin [place] - [place] - [facility] & [place] 4 15:56:21 2018 Colonoscopy completed Milka Morfin [place] - [place] - [facility] & [place] 4 16:12:04 2015 Colonoscopy completed Milka Morfin [place] - [place] - [facility] & [place] 4 16:10:05 2014 lumpectomy of left breast completed Zoë Singh [place] - [place] - [facility] & [place] 3 09:30:55 2013 esophagogastroduodenoscopy completed Zoë Singh [place] - [place] - [facility] & [place] 3 09:31:04 2013 EGD completed Harriet Joseph [place] - [place] - [facility] & [place] 3 09:10:36 2011 Colonoscopy completed Milka Romeroon [place] - [place] - [place] & [place] 4 16:09:30 2005 Colonoscopy completed Milka Shelbie [place] - [place] - [place] & [place] 4 16:08:28 1991 Carpal Tunnel Surgery completed Zoë Singh [place] - [place] - [place] & [place] 3 09:31:36 1981 cholecystectomy completed Milka Rom[place]on [place] - [place] - [place] & [place] 4 16:07:26 1966 Tonsillectomy completed Zoë Nicoletle [place] - [place] - [place] & [place] 3 09:31:15 Imaging Results Imaging Date Name Status LastModified by Organization Details LastModified Time 12/21/2024 LDCT, chest, for lung cancer screening completed [facility] (Radiology) [address] [place], [address], 12/22/2024 09:45:09 12/21/2024 LDCT, chest, for lung cancer screening completed [facility] (Scheduling) [address] [place], [address], 12/22/2024 09:45:10 02/15/2025 imaging interpretation completed [facility] (Registration) [address] [place] [address] [place], [address], 02/15/2025 16:08:45 02/16/2025 complete PFT* completed [facility] (Sleep Lab) [address] [place], [address], 03/03/2025 08:17:15 05/27/2023 XR, chest, 2 view completed [address] (Radiology) [address] [place], [address], 03/07/2025 11:16:12 12/11/2023 LDCT, chest, for lung cancer screening completed [address] (Radiology) [address] [place], [address], 03/07/2025 11:15:54 05/17/2024 XR, chest, 2 view completed [email or web address] [facility] (Radiology) [address] [place], [address], 03/07/2025 11:15:41 12/21/2024 LDCT, chest, for lung cancer screening completed [facility] (Radiology) [address] [place], [address], 03/07/2025 11:14:12 02/16/2025 complete PFT* completed [address] [place], [address], 03/07/2025 15:34:53 Procedure Notes None recorded. Medical Equipment None Reported. Allergies Allergen ID Allergen Name Allergen Category Reaction Reaction Severity Criticality Documentation Date Start Date Code Code System Note Provider Name and Address Organization Details Recorded Time 6993 glimepiri de medicatio n rash mild low 08/09/2022 85820 RxNorm [place] Colon null, [place] - NT [facility] & [place] 5 13:14:36 6994 tamoxifen medicatio n diarrhea severe high 08/09/2022 44136 RxNorm [place] Colon null, [place] - LPNT [facility] & [place] 5 13:14:49 58901 Amaryl medicatio n rash Not available Not available 05/30/2023 56948 2 RxNorm Zoë Francisco null, [place] - LPNT [facility] & [place] 3 09:29:55 73015 Augmentin medicatio n diarrhea severe high 05/30/2023 59604 2 RxNorm [place] Colon null, [place] - [place] [facility] & [place] 5 13:14:42 Medications Name Sig Start Date [...] and Address Organization Details Last Updated DateTime 4 168.91 cm 29 kg/m2 37400.2 5 g 96.3 [degF] 96 % 96 % 115 /min 20 /min 163 mm[Hg] 82 mm[Hg] Yue DIAZ [facility] 4 12:01:30 Date Recorded Body height Body mass index (BMI) Body weight Body temperature Oxygen saturation Oxygen saturation in Arterial blood by Pulse oximetry Heart rate Systolic blood pressure Diastolic blood pressure Provider Name and Address Organization Details Last Updated DateTime 4 168.91 cm 28.6 kg/m2 91546.6 3 g 97.1 [degF] 100 % 100 % 105 /min 142 mm[Hg] 82 mm[Hg] Imelda GUZMAN - JOE [facility] 4 15:57:32 Date Recorded Body height Body mass index (BMI) Body weight Body temperature Oxygen saturation Oxygen saturation in Arterial blood by Pulse oximetry Heart rate Respiratory rate Systolic blood pressure Diastolic blood pressure Provider Name and Address Organization Details Last Updated DateTime 5 168.91 cm 27.9 kg/m2 59724.1 g 96.4 [degF] 96 % 96 % 117 /min 16 /min 145 mm[Hg] 76 mm[Hg] Yue GUZMAN - JOE [facility] & [place] 5 14:10:09 Date Recorded Body height Body mass index (BMI) Body weight Body temperature Oxygen saturation Oxygen saturation in Arterial blood by Pulse oximetry Heart rate Respiratory rate Systolic blood pressure Diastolic blood pressure Provider Name and Address Organization Details Last Updated DateTime 168.91 cm 28.1 kg/m2 45880.4 1 g 96.8 [degF] 98 % 98 % 107 /min 14 /min 135 mm[Hg] 71 mm[Hg] Yue Gordillo [facility] & [place] 08:11:42 Date Recorded Body height Body mass index (BMI) Body weight Body temperature Oxygen saturation Oxygen saturation in Arterial blood by Pulse oximetry Heart rate Systolic blood pressure Diastolic blood pressure Provider Name and Address Organization Details Last Updated DateTime 168.91 cm 27.8 kg/m2 96332.6 6 g 97.8 [degF] 93 % 93 % 107 /min 134 mm[Hg] 70 mm[Hg] Imelda Khoury [facility] & [place] 14:48:48 Social History Question Answer Notes LastModified by Slide ion Details LastModified Time Tobacco Smoking Status Former Smoker Yue Gordillo [facility] & [place] 12/02/2023 08:46:33 Do You Have An Advance Directive? No [email or web address] Information not available 05/05/2024 What Is Your Level Of Alcohol Consumption? None Information not available 09/25/2023 Do You Wear A Helmet When Biking? Yes [email or web address] Information not available 05/05/2024 Are You Blind Or Do You Have Difficulty Seeing? No [email or web address] Information not available 05/05/2024 What Is Your Level Of Caffeine Consumption? Occasional [email or web address] Information not available 12/29/2023 In The 14 Days Before Symptom Onset, Have You Had Close Contact With A Laboratory-confir med COVID-19 While That Case Was Ill? No [email or web address] Information not available 05/05/2024 In The 14 Days Before Symptom Onset, Have You Had Close Contact With A Person Who Is Under Investigation For COVID-19 While That Person Was Ill? No [email or web address] Information not available 05/05/2024 Have You Been To An Area Known To Be High Risk For COVID-19? No [email or web address] Information not available 05/05/2024 Are You Currently Employed? No [email or web address] Information not available 05/05/2024 Are You Deaf Or Do You Have Serious Difficulty Hearing? No [email or web address] Information not available 05/05/2024 What Type Of Diet Are You Following? REGULAR [email or web address] Information not available 05/05/2024 Have You Processed Blood Or Body Fluids From An Ebola Virus Disease Patient Without Appropriate PPE? No [email or web address] Information not available 05/05/2024 Do You Reside In Or Have You Traveled To An Area Where Ebola Virus Transmission Is Active? No [email or web address] Information not available 05/05/2024 Have There Been Any Changes To Your Family Or Social Situation? No [email or web address] Information no t available 05/05/2024 What Is The Fluoride Status Of Your Home? Unknown [email or web address] Information not available 05/05/2024 When Did You Quit Smoking? 1-5yearssincel eric [email or web address] Information not available 12/29/2023 Are There Any Guns Present In Your Home? No [email or web address] Information not available 05/05/2024 Have You Recently Or Are You Planning To Travel To An Area With Zika Virus? No Information not available 05/05/2024 Do You Use Insect Repellent Routinely? Yes [email or web address] Information not available 05/05/2024 In General, Would [...] Bread, 1 Cup Of Whole-grain Or High-fiber Nwkgz-qt-fer Cereal, 1? 2 Cup Of Cooked Cereal Such As Oatmeal, Or 1? 2 Cup Of Cooked Brown Rice Or Whole Wheat Pasta.) 1-2 Servings Per Day Information not available 03/01/2025 In The Past 7 Days, How Many Servings Of Fried Or High-fat Foods Did You Typically Eat Each Day? (Examples Include Fried Chicken, Fried Fish, Lopez, Italian [place], Potato Chips, [place] Chips, Doughnuts, Creamy Salad Dressings, And Foods [...] Past 7 Days, How Often Have You Beulah Sleepy During The Daytime? Rarely Information not [...] Do You Feel Safe At Home? Yes [email or web address] Information not available 05/05/2024 Do You Have A Medical Power Of Commercial Real Estate Manager? No [email or web address] Information not available 05/05/2024 What Was The Date Of Your Most Recent Tobacco Screening? 05/02/2024 Information not available 07/06/2024 What Is Your Current Pack Years? 30ormorepackye ars [email or web address] Information not available 12/29/2023 Do You Have Any Pets? No [email or web address] Information not available 05/05/2024 Do You Use Your Seat Belt Or Car Seat Routinely? Yes [email or web address] Information not available 05/05/2024 Are You Sexually Active? No [email or web address] Information not available 12/29/2023 Do You Have Smoke And Carbon Monoxide Detectors In Your Home? Yes Information not available 05/05/2024 At What Age Did You Start Smoking Tobacco? 16 [email or web address] Information not available 12/29/2023 Are You Passively Exposed To Smoke? No [email or web address] Information no t available 05/05/2024 Do You Or Have You Ever Used Smokeless Tobacco? Never Used Smokeless Tobacco Information not available 07/06/2024 How Much Tobacco Do You Smoke? No Information not available 12/02/2023 Do You Feel Stressed (tense, Restless, Nervous, Or Anxious, Or Unable To Sleep At Night)? [id number] Information not available 12/02/2023 Do You Use Any Illicit Or Recreational Drugs? No Information not available 08/20/2022 Do You Use Sunscreen Routinely? Yes [email or web address] Information not available 05/05/2024 Has Tobacco Cessation Counseling Been Provided? No Information not available 12/29/2023 How Many Years Have You Smoked Tobacco? 59 [email or web address] Information not available 09/25/2023 Are You Currently In School? No [email or web address] Information not available 05/05/2024 Do You Or Have You Ever Used Any Other Forms Of Tobacco Or Nicotine? No [email or web address] Information not available 12/29/2023 Sex: Unknown Functional Status Question Answer Note LastModified by Organizat ion Details LastModified Time Do you have difficulty walking or climbing stairs? No [email or web address] Information not available 05/05/2024 Do you have transportation difficulties? No [email or web address] Information not available 05/05/2024 Are you able to walk? YESWOREST [email or web address] Information not available 05/05/2024 Do you have difficulty doing errands alone? No [email or web address] Information not available 05/05/2024 Are you able to care for yourself? Yes Information n ot available 05/05/2024 Do you have difficulty dressing or bathing? No [email or web address] Information not available 05/05/2024 What is your exercise level? Occasional Information not available 07/06/2024 Mental Status Question Answer Note LastModified by Organization D etails LastModified Time Do you have difficulty concentrating, remembering or making decisions? No [email or web address] Information no t available 05/05/2024 Family History Relationship Description Onset Age of this Age Resolved Age Notes LastModified by Organization Details LastModified Time Mother Bronchitis [email or web address] Not avail able 03/03/2025 14:00:17 Mother Congestive heart failure [email or web address] Not available 03/03 14:00:17 Mother Arthritis Not availa ble 03/03/2025 14:00:17 Mother Diabetes mellitus [email or web address] Not available 03/03 14:00:17 Mother Heart disease [email or web address] Not available 2024 13:18:12 Mother Malignant neoplasm of uterus [email or web address] Not available 03/03 14:00:17 Mother Hypertensive disorder [email or web address] Not available 2024 13:19:38 Brother Heart disease 1 Not available 2023 16:05:35 Brother Diabetes mellitus 1 [email or web address] Not available 03/03 14:00:17 Brother Heart disease 2 Not available 2023 16:05:38 Brother Heart disease 3 Not available 2023 16:05:42 Brother Diabetes mellitus 2 [email or web address] Not available 03/03 14:00:17 Brother Diabetes mellitus 3 [email or web address] Not available 03/03 14:00:17 Brother Arthritis Brothe r 1 [email or web address] Not available 03/03/2025 14:00:17 Brother Hypertensive disorder All 5 brothe rs [email or web address] Not available 01/27/2025 13:17:03 Sister Heart disease 1 Not available 2023 16:05:23 Sister Diabetes mellitus 1 [email or web address] Not available 03/03 14:00:17 Sister Heart disease 2 Not available 2023 16:05:32 Sister Diabetes mellitus 2 [email or web address] Not available 03/03 14:00:17 Sister Polyp precan cer polyp [email or web address] Not available 03/03/2025 14:00:17 Sister Hypertensive disorder [email or web address] Not available 2024 13:19:35 Paternal Grandfather Malignant tumor of colon [email or web address] Not available 03/03 14:00:17 Father Malignant tumor of stomach [email or web address] Not available 03/03 14:00:17 Son Hypertensive disorder [email or web address] Not available 2024 13:19:45 Medical History Condition Response Diabetes Y Thyroid Problems Y COPD Y Anemia Y High Cholesterol Y Gynecological History Statement/Question Response Date of Last Colonoscopy 09/08/2019 03/08/2024 Most Recent Bone Density 12/11/2023 Sexually Active? N Obstetrics History GPAL:G 0 P 0 0 0 0 Immunizations Vaccine Type Date Status Note Provider Nam e and Address Organization Details Recorded Time Influenza, high-dose, quadrivalent, PF 2 completed Yue guadarrama [place] - [place] - [facility] 08/26/2022 12:12:50 Influenza, adjuvanted, quadrivalent, PF 1 completed Harriet guadarrama [place] - [place] - [place] & [place] 11/14/2023 09:10:46 COVID-19, mRNA, LNP-S, PF, 100 mcg/0.5mL dose or 50 mcg/0.25mL dose 1 completed Harriet guadarrama [place] - [place] - [place] & [place] 11/14/2023 09:10:46 COVID-19, mRNA, LNP-S, bivalent, PF, 50 mcg/0.5 mL or 25mcg/0.25 mL dose 2 completed Harriet Joseph null, [place] - [facility] [facility] & [place] 11/14/2023 09:10:46 COVID-19, mRNA, LNP-S, PF, 100 mcg/0.5mL dose or 50 mcg/0.25mL dose 2 completed Harriet Joseph null, [place] - [place] [facility] & [place] 11/14/2023 09:10:46 COVID-19, mRNA, LNP-S, PF, 100 mcg/0.5mL dose or 50 mcg/0.25mL dose 1 completed Harriet Joseph null, [place] [facility] & [place] 11/14/2023 09:10:46 COVID-19, mRNA, LNP-S, PF, 100 mcg/0.5mL dose or 50 mcg/0.25mL dose 1 completed Harriet Joseph null, [place] [facility] & [place] 11/14/2023 09:10:46 Influenza, adjuvanted, trivalent, PF 0 completed Harriet Joseph null[place] [facility] & [place] 11/14/2023 09:10:46 pneumococcal polysaccharide PPV23 2 completed Harriet Joseph null[place] [facility] & [place] 11/14/2023 09:10:46 Tdap 1 completed Harriet Joseph null[place] [facility] & [place] 11/14/2023 09:10:46 Influenza, split virus, trivalent, preservative 6 completed Harriet Joseph null[place] [facility] & [place] 11/14/2023 09:10:46 Influenza, adjuvanted, trivalent, PF 8 completed Harriet Joseph null[place] [facility] & [place] 11/14/2023 09:10:46 Influenza, adjuvanted, quadrivalent, PF 0 completed Harriet Joseph null[place] [facility] & [place] 11/14/2023 09:10:46 Pneumococcal conjugate PCV 13 4 completed Harriet Joseph null[place] - [place] & [place] 11/14/2023 09:10:46 pneumococcal polysaccharide PPV23 7 completed Harriet Joseph null[place] - [place] & [place] 11/14/2023 09:10:46 Influenza, split virus, trivalent, preservative 5 completed Harriet Joseph null[place] - [place] & [place] 11/14/2023 09:10:46 zoster live 2 completed Harriet Joseph null[place] - [place] & [place] 11/14/2023 09:10:46 Influenza, high-dose, trivalent, PF 7 completed Harriet [place] null[place] [facility] & [place] 11/14/2023 09:10:46 Influenza, adjuvanted, quadrivalent, PF 3 completed Danielle Shore MD [address] [place], [address], [place] [facility] & [place] 09/25/2023 14:47:01 Respiratory syncytial virus (RSV) vaccine, unspecified 3 completed Harriet Joseph null, [place] - [place] [facility] & [place] 11/14/2023 09:10:46 RSV, recombinant, protein subunit RSVpreF, adjuvant reconstituted, 0.5 mL, PF 3 completed Yue Gordillo null[place] [facility] & [place] 10/04/2024 12:01:52 COVID-19, mRNA, LNP-S, PF, yfn-sucrose, 30 mcg/0.3 mL 3 completed Yue Gordillo null[place] [facility] & [place] 10/04/2024 12:01:52 zoster recombinant 4 completed Yue Gordillo [place] - [place] & [place] 10/04/2024 12:01:52 Tdap 4 completed Harriet Joseph null, [place] - [place] - [place] & [place] 04/08/2024 15:13:38 zoster recombinant 4 completed MEGAN Salcedo LPNT - [place] & [place] 10/04/2024 12:01:52 Past Encounters Encounter ID Performer Location Encounter Start Date Encounter Closed Date Diagnosis/Indication Diagnosis SNOMED-CT Code Diagnosis ICD10 Code Diagnosis Note [id number] Jas Du MD [address] [address] 08/20/2022 08:26:57 08/20/2022 09:07:20 Acute exacerbation of chronic obstructive pulmonary disease 273764577 J44.1 PATIENT STATES SHE CANNOT AFFORD THE SYMBICORT. SHE HAS BEEN GIVEN SAMPLES OF TRELEGY. SHE IS TO FOLLOW-UP IN A MONTH AND LET US KNOW HOW SHE IS DOING. Diabetes mellitus 588105 09 E11.9 I WILL SEND IN A PRESCRIPTI ON FOR PATIENT'S METFORMIN. SHE SHOULD BE ON 1000 MG TWICE A DAY. Gastroesop hageal reflux disease without esophagitis 668332700 K21.9 PATIENT TO CONTINUE WITH OMEPRAZOLE Hyperlipidemia 20848465 E78.5 WILL OBTAIN LAB WORK TODAY. SHE IS CURRENTLY TAKING ATORVASTAT IN Iron defic iency anemia 61109669 D50.9 WILL OBTAIN LAB WORK TODAY [id number] Jas Du MD [address] [address] 08/23/2022 12:20:20 08/23/2022 12:39:43 Administration of influenza vaccine 40181140 Z23 [id number] Jas Du MD [address] [address] 10/29/2022 12:25:10 10/29/2022 14:39:11 Acute sinusitis 56258401 J01.90 [id number] MD jeffrey Shelton[address] [address] 11/26/2022 07:54:11 11/26/2022 08:22:22 Adult health examination 044007388 Z00.00 patient presents for annual physical exam. No issues. Acute exac erbation of chronic obstructive pulmonary disease [id number] J44.1 Patient is doing well with Trelegy. Diabetes mellitus 231123 09 E11.9 Will check lab work today and call patient with results. Gastroesop hageal reflux disease without esophagitis [id number] K21.9 PATIENT TO CONTINUE WITH OMEPRAZOLE Hyperlipidemia 77704636 E78.5 WILL OBTAIN LAB WORK TODAY. SHE IS CURRENTLY TAKING ATORVASTAT IN Tobacco de pendence syndrome 69536692 F17.200 Malignant neoplasm of female breast 062983321 C50.912 [id number] Jas Du MD [address] [address] 02/19/2023 10:56:47 02/19/2023 11:42:48 Acute bronchitis [id number] J20.9 [id number] Jas Du MD [address] [address] 03/05/2023 12:08:16 03/05/2023 12:53:35 Chronic obstructive pulmonary disease 79918210 J44.9 patient's symptoms continued to linger. At this time will increase, will increase her Trelegy to 200 mg and refer her to pulmonolog y. Patient has been given a sample pack. [id number] Jas Du MD [address] [place] [address] 06/02/2023 10:20:55 06/02/2023 10:54:25 Type 2 diabetes mellitus without complication [id number] E11.9 WILL OBTAIN LAB WORK TODAY. Labs drawn by ILYA Gaytan, in right forearm. Patient tolerated well. Acute exac erbation of chronic obstructive pulmonary disease 249777264 J44.1 Patient is doing well with Trelegy. Anemia 494185342 D64.9 WILL OBTAIN LAB WORK TODAY. Diabetes mellitus 041574 09 E11.9 Will check lab work today and call patient with results. Hyperlipidemia 04996908 E78.5 WILL OBTAIN LAB WORK TODAY. SHE IS CURRENTLY TAKING ATORVASTAT IN Iron defic iency anemia 21846632 D50.9 WILL OBTAIN LAB WORK TODAY [id number] Jas Du MD [address] [place] [address] 08/27/2023 10:21:53 08/27/2023 10:44:53 Acute bronchitis 90159291 J20.9 Patient has acute bronchitis she also has a baseline history of COPD. We will put her on antibiotic s and steroids. I will also refer her to a pulmonolog ist.She was given a sample pack of Trelegy. [id number] Danielle Shore MD [facility] [address] [facility] [facility] [place] [address] 09/25/2023 13:26:36 09/25/2023 14:17:35 Chronic bronchitis 05810008 J42 Spirometry done in the office today showed fair effort with evidence of obstructio n and decrease in FEV1 down to 51% predicted and that was reviewed and discussed with the patient.Wi ll check alpha-1 trypsin genotype by buccal mucosal swab in the office today.Isi ent instructed to continue with the use of Trelegy daily.Isi ent instructed to call if there is any new symptoms. Dyspnea on exertion 6084 5006 R06.09 Patient recommende d to exercise as tolerated and use her Gabriela on a p.r.n. basis. Tobacco de pendence caused by cigarettes [id number] 0354453 F17.210 Patient counseled extensivel y to quit smoking and will continue follow this up.Patient given informatio n regarding smoking cessation classes.Wi ll arrange for the patient to have nicotine patches to help her in this process.Que duffy to have an annual low-dose CT of the chest and will send a new order for December 2023. Screening for malignant neoplasm of respiratory tract 864683181 Z12.2 The patient has participat ed in a shared decision making session during which potential risk and benefits of LDCT lung cancer screening were discussed. The patient was informed of the importance of adherence to annual screening, impact of comorbidit ies, the ability/wi llingness to undergo diagnosis and treatment. The patient was informed of the importance of smoking cessation and/or maintainin g smoking abstinence , including the offer of Medicare-c over tobacco cessation counseling services, if applicable .The patient is asymptomat ic (no symptoms such as fever, chest pain, new shortness of breath, new or changing cough, coughing up blood, or unexplaine d significan t weight loss). Administra tion of influenza vaccine 96320553 Z23 Will administer flu vaccine in the office today. Immunization advised 310 432037 Z71.9 Patient recommende d to receive her COVID-19 vaccinatio n from her pharmacy.Yadi quiñones recommende d to receive RSV vaccine and will send an order to her pharmacy. [id number] Jas Du MD [facility] [address] [place] [address] 12/02/2023 08:23:29 12/02/2023 09:29:18 Type 2 diabetes mellitus without complication 829669651 E11.9 will obtain lab work today. Will call patient with results. Adult heal th examination 716626393 Z00.00 patient presents for annual physical exam. No issues. patient is up-to-date on her mammogram, colonoscop y, low-dose CT. Will order a bone density scan. Hyperlipidemia 62336901 E78.5 WILL OBTAIN LAB WORK TODAY. SHE IS CURRENTLY TAKING ATORVASTAT IN Screening for osteoporosis 517277710 Z13.820 I will order a DEXA scan today Tobacco user 989712944 Z 72.0 patient has recently stopped smoking. She has not had a cigarette in over 2 months. She already has a low-dose CT scan scheduled. [id number] Danielle Shore MD [facility] [address] [facility] [place] [address] 12/29/2023 12:49:51 12/29/2023 13:30:20 Chronic bronchitis 24900949 J42 Alpha-1 antitrypsi n testing was within normal limit/mm.Yadi quiñones instructed to continue with the use of Trelegy daily.Isi ent instructed to call if there is any new symptoms. Dyspnea on exertion 6084 5006 R06.09 Patient recommende d to exercise as tolerated and use her Gabriela on a p.r.n. basis. Tobacco de pendence caused by cigarettes [id number] 8589031 F17.211 Patient counseled to remain without smoking and will continue follow this up.Images and report of low-dose CT of the chest done this month were reviewed and discussed with the patient, there is no evidence of malignancy and will continue with annual testing. Screening for malignant neoplasm of respiratory tract 819998334 Z12.2 The patient has participat ed in a shared decision making session during which potential risk and benefits of LDCT lung cancer screening were discussed. The patient was informed of the importance of adherence to annual screening, impact of comorbidit ies, the ability/wi llingness to undergo diagnosis and treatment. The patient was informed of the importance of smoking cessation and/or maintainin g smoking abstinence , including the offer of Medicare-c over tobacco cessation counseling services, if applicable .The patient is asymptomat ic (no symptoms such as fever, chest pain, new shortness of breath, new or changing cough, coughing up blood, or unexplaine d significan t weight loss). [id number] Jas Du MD [address] [place] [address] 05/05/2024 09:15:09 05/06/2024 07:46:49 Type 2 diabetes mellitus without complication 097172238 E11.9 Will obtain lab work today Patient recently refilled her metformin. Anemia 981105247 D64.9 WILL OBTAIN LAB WORK TODAY. Chronic ob structive pulmonary disease 89827204 J44.9 Patient is currently seeing pulmonolog y. She is on Trelegy. She states that it works well. Diabetes mellitus 539655 09 E11.9 Will check lab work today and call patient with results. Thyroid di sorder screening 624671373 Z13.29 will check patient's TSH. Hyperlipidemia 01951083 E78.5 patient is currently on atorvastat in. Will check her levels today. [id number] Jas Du MD [address] [place] [address] 05/17/2024 15:14:13 05/17/2024 15:52:51 Cough 12404551 R05.9 eliud ltreat as described below [id number] Jas Du MD [address] [place] [address] 08/19/2024 08:15:12 08/19/2024 08:35:49 Type 2 diabetes mellitus without complication 755766699 E11.9 patient is currently taking metformin, she reports adequate control. Will refill medication s as needed. Chronic ob structive pulmonary disease 13597064 J44.9 Patient's pulmonolog ist is no longer in practice will refer patient to a different pulmonolog ist. She is on Trelegy. She states that it works well. Gastroesop hageal reflux disease without esophagitis 770180107 K21.9 PATIENT TO CONTINUE WITH OMEPRAZOLE [id number] Jas Du MD [address] [place] [address] 10/04/2024 11:55:33 10/04/2024 12:11:09 Acute bronchitis 55360350 J20.9 [id number] Wilman Edge M.D [facility] [address] [place] [address] 10/19/2024 14:33:33 10/19/2024 16:28:08 Chronic obstructive pulmonary disease 74102310 J44.9 Dyspnea 196304073 R06.00 Nicotine dependence 5629 4008 F17.200 Acute exac erbation of chronic obstructive pulmonary disease 167934707 J44.1 [id number] Wilman Edge M.D [facility] [address] [place] [address] 03/03/2025 13:41:14 03/03/2025 15:07:22 Chronic obstructive pulmonary disease 40169418 J44.9 Dyspnea 836778110 R06.00 Nicotine dependence 5629 4008 F17.200 Acute exac erbation of chronic obstructive pulmonary disease 032301188 J44.1 Lymphadenopathy 39181118 R59.1 [id number] Jas Du MD [address] [place] [address] 01/25/2025 13:59:10 01/25/2025 14:42:02 Acute exacerbation of chronic obstructive pulmonary disease 458108040 J44.1 Multiple n odules of lung 364232655 R91.8 WILL OBTAIN PETSCAN Type 2 michael betes mellitus 68899149 E11.9 [id number] Jas Du MD [address] [place] [address] 03/01/2025 07:55:25 03/01/2025 08:20:51 Adult health examination 325499938 Z00.00 patient presents for annual physical exam. No issues. patient is up-to-date on her mammogram, colonoscop y, low-dose CT. Will order a bone density scan. Diabetes mellitus 624784 09 E11.9 Will check lab work today and call patient with results. Hyperlipidemia 11848686 E78.5 patient is currently on atorvastat in. Will check her levels today. Thyroid di sorder screening 286137119 Z13.29 will check patient's TSH. Screening for malignant neoplasm of breast 906829966 Z12.31 Health Concerns Section Related Observation LastModified by Organization Detai ls LastModified Time None Recorded Concern Status LastModified by Organization Details LastModified Time None Recorded Advance Directives Directive N: Payers Encounter Date Sequence Insurance Name Policy Number Policy Granger Covered Member ID Granger Member ID Guarantor Name 10/04/2024 1 [employer] (MEDICARE REPLACEMENT/ ADVANTAGE - HMO) Latoya B Ruiz [id number] Latoya B Ruiz 10/04/2024 2 [employer] CLAIMS OFFICE Latoya B Ruiz [id number] Latoya B Ruiz 10/19/2024 1 [employer] (MEDICARE REPLACEMENT/ ADVANTAGE - HMO) Latoya B Ruiz [id number] Latoya B Ruiz 10/19/2024 2 [employer] CLAIMS OFFICE Latoya B Ruiz [id number] Latoya B Ruiz 01/25/2025 1 [employer] (MEDICARE REPLACEMENT/ ADVANTAGE - HMO) Latoya B Ruiz [id number] Latoya B Ruiz 03/01/2025 1 [employer] (MEDICARE REPLACEMENT/ ADVANTAGE - HMO) Latoya B Ruiz [id number] Latoya B Ruiz 03/01/2025 2 [facility] Latoya B Ruiz [id number] Latoya B Ruiz 03/03/2025 1 [employer] (MEDICARE REPLACEMENT/ ADVANTAGE - HMO) Latoya B Ruiz [id number] Latoya B Ruiz 03/03/2025 2 [employer] Latoya B Ruiz [id number] Latoya B Ruiz Notes Date Note Type Note Provider Name and Address Organization Details Recorded Time 10/04/2024 text/html SDSPatient prese nts with a 2 week history of cough productive of brownish greenish blood-tinged sputum. She also has had generalized malaise. Jas Du MD [address] [place] [address], [phone], [facility] & [place] 10/04/2024 12:11:28 10/19/2024 text/html Patient is a 74 year old female present today for COPD referred by Dr Du. Patient is a former smoker with a 40 year smoking history of 2 ppd stopped in August 2023. Patient states she has previous seen Dr. Shore since August 2023. Patient states she was diagnosed copd for the last year. Patient complains she she asthma. Patient is currently using Trelegy 200 inhaler but is $500 monthly and is currently getting samples from primary care. Patient complains she recently has had a cough with yellow green sputum production. Patient complains of acid reflux, copd and shortness of breath with bronchitis. Patient denies sleep apnea, heart disease, supplemental oxygen use. Wilman Edge M.D [address] [place] [address], [address], [phone], [facility] & [place] 10/19/2024 22:28:32 01/25/2025 text/html patient presents today with a [...] PET scan was recommended. Jas Du MD [address] [place] [address], [phone], [facility] & [place] 01/25/2025 15:59:00 03/01/2025 text/html patient presents today for annual wellness exam. She denies any new issues. Jas Du MD [address] [place] [address], [phone], [facility] & [place] 03/01/2025 08:56:42 03/03/2025 text/html Patient is a 74 year old female present today for a follow up visit. Patient states she is doing fine. Patient is using Trelegy 200 given samples by her primary care provider. Patient complains she recently has gotten over bronchitis. Patient denies hospitalization for breathing issues. Wilman Edge M.D [address] [place] [address], [address], [place], [address], [place] [facility] & [place] 03/03/2025 16:18:14 OBGyn Episode No OBEpisode recorded.
--- OUTSIDE RECORDS SUMMARY | 2025-03-10 22:28 | XMS_ITS | Continuity of Care Document ---
Author Organization [facility] Pulmonary Medicine W - [address] [facility] [address] [place] [address] Care Team Providers Care Sound Effects Supervisor Name Role Phone WEROVENKATAzalea JAS Primary Care Provider DANIELLE SHORE Grapple Operator ARMAND MENDOZA Active Directory Engineer Assessment Encounter Date Assessment Date Assessment LastModified by Organization Details LastModified Time 03/03/2025 03/03/2025 74-year-old male smoked more than [...] nodules. December 2022 CT chest done at [facility] No noncalcified nodules or masses. Evidence of [...] Lab CMP, serum or plasma 2024 025 [email or web address] [facility] (Lab Registration) , [address] [place] [address] [place], [address], 03/10/2025 07:38:22 Referral None recorded. Procedures None recorded. Surgeries None recorded. Imaging CT, chest, w/ contrast 2024 025 [email or web address] [address] [place] [address] [place], [address], 03/03/2025 15:50:34 Medication Orders None recorded. Patient TargetsNo targets recorded. Patient InstructionsNo instructions recorded. Reason for Referral None Reported. Results Created Date Observation Date Name Description Value Unit Range Abnormal Flag Note LastModifiedBy Organization Detail LastModifiedTime 02/16/2002/15/2025 imagi ng inter preta tion No observ ation record ed. [facility] (Registration ) [address] [place] [address] [place], [address], 02/15/2025 16:08:45 03/02/2002/16/2025 compl ete PFT* No observ ation record ed. [facility] (Sleep Lab) [address] [place], [address], 03/03/2025 08:17:15 03/07/20 25 05/27/2023 XR, chest , 2 view No observ ation record ed. [address] (Radiology) [address] [place], [address], 03/07/2025 11:16:12 03/07/20 25 12/11/2023 LDCT, chest , for lung cance r scree lulu No observ ation record ed. [address] (Radiology) [address] [place], [address], 03/07/2025 11:15:54 03/07/20 25 05/17/2024 XR, chest , 2 view No observ ation record ed. [address] (Radiology) [address] [place], [address], 03/07/2025 11:15:41 03/07/20 25 12/21/2024 LDCT, chest , for lung cance r scree lulu No observ ation record ed. [facility] (Radiology) [address] [place], [address], 03/07/2025 11:14:12 03/07/20 25 02/16/2025 compl ete PFT* No observ ation record ed. [facility] [address] [place], [address], 03/07/2025 15:34:53 Result Notes None recorded. Problems Name Problem SNOMED Code Status Onset Date Resolution Date Notes Provider Name and Address Organization Details Recorded Time Malignant neoplasm of female breast 954625816 Active MEGAN [place] - [facility] 4 09:33:45 Simple chronic bronchitis 01073788 Active MEGAN [place] - [facility] 4 09:34:12 Patient encounter status 559068123 Active Manuel Vacales null, MEGAN [place] [facility] - [place] & [place] 4 09:34:04 Paresthsantiago a 01696871 Active Manuel Underwood null, [place]GAN [place] [facility] - [place] & [place] 4 09:34:01 Allergic bronchitis 123430880 Active Manuel Underwood null, MEGAN [place] [facility] - [place] & [place] 4 09:32:37 History of malignant neoplasm of breast 531735092 Active Manuel Underwood null, MEGAN [place] [facility] - [facility] & [place] 4 09:33:32 Bronchitis 64998175 Active Manuel Underwood null, MEGAN [place] [facility] - [place] & [place] 4 09:32:40 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 Active Manuel Underwood null, MEGAN [place] [facility] & [place] 4 09:33:58 Chronic diarrhea 629146436 Active Manuel Underwood null, MEGAN [place]wood [facility] & [place] 4 09:32:54 Anemia 994676463 Active Not Available [facility] 4 07:59:57 Mixed hyperlipid emia 417542693 Active Not Available [facility] 4 07:59:57 Hematochez ia 287956202 Active Manuel Underwood null, MEGAN [place] [facility] & [place] 4 09:33:28 Iron deficiency anemia 60390183 Active Manuel Underwood null, MEGAN [place] [facility] & [place] 4 09:33:41 Acute bronchitis 53662968 Active Manuel Underwood null, MEGAN [place] [facility] - [place] & [place] 4 09:32:22 Acute maxillary sinusitis 50960081 Active Manuel Underwood null, MEGAN [place] [facility] & [place] 4 09:32:31 Diabetes mellitus 32325080 Active Manuel Underwood null, MEGAN [place] [facility] - [place] & [place] 4 09:33:03 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 62448495 Active Not Available [facility] 4 07:59:57 Edema 726011307 Active Manuel Underwood null, [place] - [facility] - & 4 09:33:18 Chronic obstructiv e pulmonary disease 75258711 Active Not Available [facility] 4 07:59:57 Tobacco user 505066872 Active Manuel Underwood null, MEGAN - [facility] - & [place] 4 09:34:20 Seasonal allergic rhinitis 722912678 Active Manuel Underwood null, [place] - [facility] - & 4 09:34:08 Carpal tunnel syndrome of left wrist 2431753415928 02 Active Manuel Vacales null, MEGAN - [facility] - & 4 09:32:44 Type 2 diabetes mellitus without complicati on 077764945 Active Not Available [facility] 4 07:59:57 Hyperlipid emia 27377468 Active Manuel Underwood null, MEGAN - [facility] - & 4 09:33:36 Acute exacerbati on of chronic obstructiv e pulmonary disease 888740389 Active Manuel Vacales null, [place] - [facility] - & 4 09:32:25 Gastroesop hageal reflux disease without esophagiti s 784734578 Active Not Available [facility] 4 07:59:57 Fecal occult blood: positive Active Manuel Underwood null, MEGAN - [facility] - & 4 09:33:25 Vaccinatio n given 400763595 Active Manuel [place] null[place] - [facility] - & 4 09:34:25 Chronic bronchitis 13705946 Active 2022 Amnuel [place] [facility] - & 4 09:32:48 Dyspnea on exertion 77090132 Active 2022 Manuel [place] - [facility] - & 4 09:33:14 Tobacco dependence caused by cigarettes 6616455148774 9107 Active 2022 Manuel Underwood null, [place] - [facility] - [place] & [place] 4 09:34:16 Problem Notes None recorded. Procedures Surgical History Date Name Laterality Status Provider Name and Address Organization Details Recorded Time 2024 Medicare Annual Wellness Visit Health Risk Assessment completed Yue Pardini [place] - [facility] - [place] 5 08:17:15 2023 completed Milka Shelbie [place] - [facility] [place] & [place] 4 15:56:21 2023 Most Recent Bone Density completed Milka Shelbie [place] [facility] [place] & [place] 4 15:56:21 2023 Medicare Annual Wellness Visit Health Risk Assessment completed Yue [place]ardini [place] - [facility] [place] [facility] [place] 4 08:50:39 2021 Medicare Annual Wellness Visit Health Risk Assessment completed Yue [place]ardini [place] [facility] [place] 2 08:21:17 2018 Date of Last Colonoscopy completed Milka Shelbie [place] - [facility] [place] & [place] 4 15:56:21 2018 Colonoscopy [place] Milka [place]bie [place] [facility] [place] 4 16:12:04 2015 Colonoscopy [place] Milka [place] [facility] [place] & [place] 4 16:10:05 2014 lumpectomy of left breast completed Zoë Nicoletle [place] - [facility] - [place] & [place] 3 09:30:55 2013 esophagogastroduodenoscopy completed Zoë [place] - [facility] - [place] & [place] 3 09:31:04 2013 EGD completed Harriet Joseph [place] - [facility] - [place] & [place] 3 09:10:36 2011 Colonoscopy completed Milka Shelbie [place] - [facility] - [place] & [place] 4 16:09:30 2005 Colonoscopy completed Milka Shelbie [place] - [facility] [place] & [place] 4 16:08:28 1991 Carpal Tunnel Surgery completed Zoë DIAZ [facility] & [place] 3 09:31:36 1981 cholecystectomy completed Milka Atwood [facility] & [place] 4 16:07:26 1966 Tonsillectomy completed Zoë GUZMAN JOE [facility] & [place] 3 09:31:15 Imaging Results None recorded. Procedure Notes None recorded. Medical Equipment None Reported. Allergies Allergen ID Allergen Name Allergen Category Reaction Reaction Severity Criticality Documentation Date Start Date Code Code System Note Provider Name and Address Organization Details Recorded Time 6993 glimepiri de medicatio n rash mild low 08/09/2022 50646 RxNorm [place] null, [facility] & [place] 5 13:14:36 6994 tamoxifen medicatio n diarrhea severe high 08/09/2022 49657 RxNorm [place] Colon null, MEGAN JOE [facility] & [place] 5 13:14:49 31765 Amaryl medicatio n rash Not available Not available 05/30/2023 84992 2 RxNorm Zoë guadarrama, [facility] & [place] 3 09:29:55 12099 Augmentin medicatio n diarrhea severe high 05/30/2023 10574 2 RxNorm [place] Colon null, MEGAN [facility] & [place] 5 13:14:42 Medications Name Sig Start Date [...] Details Last Updated DateTime 5 168.91 cm 27.8 kg/m2 61693.6 6 g 97.8 [degF] 93 % 93 % 107 /min 134 mm[Hg] 70 mm[Hg] Imelda Khoury [facility] & [place] 14:48:48 Social History Question Answer Notes LastModified by Organizat ion Details LastModified Time Tobacco Smoking Status [facility] [place] 12/02/2023 08:46:33 Do You Have An Advance Directive? No [email or web address] Information not available 05/05/2024 What Is Your Level Of Alcohol Consumption? None [email or web address] Information not available 09/25/2023 Do You Wear A Helmet When Biking? Yes [email or web address] Information not available 05/05/2024 Are You Blind Or Do You Have Difficulty Seeing? No [email or web address] Information not available 05/05/2024 What Is Your Level Of Caffeine Consumption? Occasional [email or web address] Information not available 12/29/2023 In The 14 Days Before Symptom Onset, Have You Had Close Contact With A Laboratory-confir med COVID-19 While That Case Was Ill? No [email or web address] Information not available 05/05/2024 In The 14 Days Before Symptom Onset, Have You Had Close Contact With A Person Who Is Under Investigation For COVID-19 While That Person Was Ill? No [email or web address] Information not available 05/05/2024 Have You Been To An Area Known To Be High Risk For COVID-19? No [email or web address] Information not available 05/05/2024 Are You Currently Employed? No [email or web address] Information not available 05/05/2024 Are You Deaf Or Do You Have Serious Difficulty Hearing? No [email or web address] Information not available 05/05/2024 What Type Of Diet Are You Following? REGULAR [email or web address] Information not available 05/05/2024 Have You Processed Blood Or Body Fluids From An Ebola Virus Disease Patient Without Appropriate PPE? No [email or web address] Information not available 05/05/2024 Do You Reside In Or Have You Traveled To An Area Where Ebola Virus Transmission Is Active? No [email or web address] Information not available 05/05/2024 Have There Been Any Changes To Your Family Or Social Situation? No [email or web address] Information no t available 05/05/2024 What Is The Fluoride Status Of Your Home? Unknown fyltifts13 Information not available 05/05/2024 When Did You Quit Smoking? 1-5yearssincel eric mccord71 Information not available 12/29/2023 Are There Any Guns Present In Your Home? No [email or web address] Information not available 05/05/2024 Have You Recently Or Are You Planning To Travel To An Area With Zika Virus? No mnkoudaz72 Information not available 05/05/2024 Do You Use Insect Repellent Routinely? Yes [email or web address] Information not available 05/05/2024 In General, Would [...] Bread, 1 Cup Of Whole-grain Or High-fiber Brzki-ns-lxq Cereal, 1? 2 Cup Of Cooked Cereal Such As Oatmeal, Or 1? 2 Cup Of Cooked Brown Rice Or Whole Wheat Pasta.) 1-2 Servings Per Day Information not available 03/01/2025 In The Past 7 Days, How Many Servings Of Fried Or High-fat Foods Did You Typically Eat Each Day? (Examples Include Fried Chicken, Fried Fish, Lopez, Turkish Elmo, Potato Chips, [place] Chips, Doughnuts, Creamy Salad Dressings, And Foods [...] Past 7 Days, How Often Have You [place] Sleepy During The Daytime? Rarely Information not [...] Do You Feel Safe At Home? Yes [email or web address] Information not available 05/05/2024 Do You Have A Medical Power Of Vice Squad Police Officer? No [email or web address] Information not available 05/05/2024 What Was The Date Of Your Most Recent Tobacco Screening? 05/02/2024 Information not available 07/06/2024 What Is Your Current Pack Years? 30ormorepamahsa tam itzozbraijt62 Information not available 12/29/2023 Do You Have Any Pets? No [email or web address] Information not available 05/05/2024 Do You Use Your Seat Belt Or Car Seat Routinely? Yes [email or web address] Information not available 05/05/2024 Are You Sexually Active? No [email or web address] Information not available 12/29/2023 Do You Have Smoke And Carbon Monoxide Detectors In Your Home? Yes Information not available 05/05/2024 At What Age Did You Start Smoking Tobacco? 16 [email or web address] Information not available 12/29/2023 Are You Passively Exposed To Smoke? No [email or web address] Information no t available 05/05/2024 Do You Or Have You Ever Used Smokeless Tobacco? Never Used Smokeless Tobacco Information not available 07/06/2024 How Much Tobacco Do You Smoke? No Information not available 12/02/2023 Do You Feel Stressed (tense, Restless, Nervous, Or Anxious, Or Unable To Sleep At Night)? [id number] [email or web address] Information not available 12/02/2023 Do You Use Any Illicit Or Recreational Drugs? No Information not available 08/20/2022 Do You Use Sunscreen Routinely? Yes tsurjwpi55 Information not available 05/05/2024 Has Tobacco Cessation Counseling Been Provided? No [email or web address] Information not available 12/29/2023 How Many Years Have You Smoked Tobacco? 59 ykzxihosgyr29 Information not available 09/25/2023 Are You Currently In School? No Information not available 05/05/2024 Do You Or Have You Ever Used Any Other Forms Of Tobacco Or Nicotine? No hlndyoqknab61 Information not available 12/29/2023 Sex: Unknown Functional Status Question Answer Note LastModified by Organizat ion Details LastModified Time Do you have difficulty walking or climbing stairs? No seyowonp29 Information not available 05/05/2024 Do you have transportation difficulties? No bopbdxof08 Information not available 05/05/2024 Are you able to walk? YESWOREST kevttaxk96 Information not available 05/05/2024 Do you have difficulty doing errands alone? No Information not available 05/05/2024 Are you able to care for yourself? Yes [email or web address] Information n ot available 05/05/2024 Do you have difficulty dressing or bathing? No tcxuurku91 Information not available 05/05/2024 What is your exercise level? Occasional Information not available 07/06/2024 Mental Status Question Answer Note LastModified by Organization D etails LastModified Time Do you have difficulty concentrating, remembering or making decisions? No [email or web address] Information no t available 05/05/2024 Family History Relationship Description Onset Age of this Age Resolved Age Notes LastModified by Organization Details LastModified Time Mother Bronchitis [email or web address] Not avail able 03/03/2025 14:00:17 Mother Congestive heart failure Not available 03/03 14:00:17 Mother Arthritis [email or web address] Not availa ble 03/03/2025 14:00:17 Mother Diabetes mellitus [email or web address] Not available 03/03 14:00:17 Mother Heart disease ntyrgy99 Not available 2024 13:18:12 Mother Malignant neoplasm of uterus zqqdtziu27 Not available 03/03 14:00:17 Mother Hypertensive disorder [email or web address] Not available 2024 13:19:38 Brother Heart disease 1 Not available 2023 16:05:35 Brother Diabetes mellitus 1 orzrsmxn25 Not available 03/03 14:00:17 Brother Heart disease 2 Not available 2023 16:05:38 Brother Heart disease 3 Not available 2023 16:05:42 Brother Diabetes mellitus 2 [email or web address] Not available 03/03 14:00:17 Brother Diabetes mellitus 3 [email or web address] Not available 03/03 14:00:17 Brother Arthritis Brothe r 1 Not available 03/03/2025 14:00:17 Brother Hypertensive disorder All 5 brothe rs Not available 01/27/2025 13:17:03 Sister Heart disease 1 Not available 2023 16:05:23 Sister Diabetes mellitus 1 [email or web address] Not available 03/03 14:00:17 Sister Heart disease 2 Not available 2023 16:05:32 Sister Diabetes mellitus 2 wiigvrhg14 Not available 03/03 14:00:17 Sister Polyp precan cer polyp [email or web address] Not available 03/03/2025 14:00:17 Sister Hypertensive disorder [email or web address] Not available 2024 13:19:35 Paternal Grandfather Malignant tumor of colon [email or web address] Not available 03/03 14:00:17 Father Malignant tumor of stomach [email or web address] Not available 03/03 14:00:17 Son Hypertensive disorder [email or web address] Not available 2024 13:19:45 Medical History Condition Response COPD Y High Cholesterol Y Thyroid Problems Y Anemia Y Diabetes Y Gynecological History Statement/Question Response Date of Last Colonoscopy 09/08/2019 03/08/2024 Most Recent Bone Density 12/11/2023 Sexually Active? N Obstetrics History GPAL:G 0 P 0 0 0 0 Immunizations Vaccine Type Date Status Note Provider Nam e and Address Organization Details Recorded Time Influenza, high-dose, quadrivalent, PF 2 completed Yue guadarrama, [place] - [facility] 08/26/2022 12:12:50 Influenza, adjuvanted, quadrivalent, PF 1 completed Harriet guadarrama [place] - [facility] [facility] 11/14/2023 09:10:46 COVID-19, mRNA, LNP-S, PF, 100 mcg/0.5mL dose or 50 mcg/0.25mL dose 1 completed Harriet guadarrama [place] - [facility] [facility] 11/14/2023 09:10:46 COVID-19, mRNA, LNP-S, bivalent, PF, 50 mcg/0.5 mL or 25mcg/0.25 mL dose 2 completed Harriet guadarrama [place] - [facility] [facility] 11/14/2023 09:10:46 COVID-19, mRNA, LNP-S, PF, 100 mcg/0.5mL dose or 50 mcg/0.25mL dose 2 completed Harriet Joseph null, [place] [facility] - [place] [facility] [place] 11/14/2023 09:10:46 COVID-19, mRNA, LNP-S, PF, 100 mcg/0.5mL dose or 50 mcg/0.25mL dose 1 completed Harriet Joseph null[place] [facility] [facility] [place] 11/14/2023 09:10:46 COVID-19, mRNA, LNP-S, PF, 100 mcg/0.5mL dose or 50 mcg/0.25mL dose 1 completed Harriet Joseph null, [place] [facility] - [place] [facility] [place] 11/14/2023 09:10:46 Influenza, adjuvanted, trivalent, PF 0 completed Harriet Joseph null[place] [facility] [facility] [place] 11/14/2023 09:10:46 pneumococcal polysaccharide PPV23 2 completed Harriet Joseph null[place] [facility] [place] [facility] [place] 11/14/2023 09:10:46 Tdap 1 completed Harriet Joseph null[place] [facility] [facility] [place] 11/14/2023 09:10:46 Influenza, split virus, trivalent, preservative 6 completed Harriet Joseph null[place] [facility] [facility] [place] 11/14/2023 09:10:46 Influenza, adjuvanted, trivalent, PF 8 completed Harriet Joseph null[place] [facility] [facility] [place] 11/14/2023 09:10:46 Influenza, adjuvanted, quadrivalent, PF 0 completed Harriet [place] null[place] [facility] [place] 11/14/2023 09:10:46 Pneumococcal conjugate PCV 13 4 completed Harriet Joseph null[place] [facility] [facility] [place] 11/14/2023 09:10:46 pneumococcal polysaccharide PPV23 7 completed Harriet guadarrama[place] [facility] - [place] [facility] [place] 11/14/2023 09:10:46 Influenza, split virus, trivalent, preservative 5 completed Harriet Joseph chiara, MEGAN - [facility] - [place] & [place] 11/14/2023 09:10:46 zoster live 2 completed Harriet Joseph chiara, MEGAN - [facility] - [place] [facility] [place] 11/14/2023 09:10:46 Influenza, high-dose, trivalent, PF 7 completed Harriet Jake gu[place]arrama[place] [facility] - [place] [facility] [place] 11/14/2023 09:10:46 Influenza, adjuvanted, quadrivalent, PF 3 completed Danielle Shore MD [address] [facility], [place], [address], [place] [facility] [place] [facility] [place] 09/25/2023 14:47:01 Respiratory syncytial virus (RSV) vaccine, unspecified 3 completed Harriet Joseph chiara[place] [facility] - [place] [facility] [place] 11/14/2023 09:10:46 RSV, recombinant, protein subunit RSVpreF, adjuvant reconstituted, 0.5 mL, PF 3 completed Yue Terani null, MEGAN - [facility] - [place] & [place] 10/04/2024 12:01:52 COVID-19, mRNA, LNP-S, PF, yfn-sucrose, 30 mcg/0.3 mL 3 completed Yeu Terani null[place] [facility] [place] [facility] [place] 10/04/2024 12:01:52 zoster recombinant 4 completed Yue Terani null[place] [facility] [place] 10/04/2024 12:01:52 Tdap 4 completed Harriet Joseph null[place] [facility] [facility] [place] 04/08/2024 15:13:38 zoster recombinant 4 completed Yue Pardini null[place] [facility] [facility] [place] 10/04/2024 12:01:52 Past Encounters Encounter ID Performer Location Encounter Start Date Encounter Closed Date Diagnosis/Indication Diagnosis SNOMED-CT Code Diagnosis ICD10 Code Diagnosis Note [id number] Wilman Edge M.D [facility] Pulmonary Medicine W - [address] [place] [address] [address] [place]GAN ANTHONY [address] 03/03/2025 13:41:14 03/03/2025 15:07:22 Chronic obstructive pulmonary disease 34227281 J44.9 Dyspnea 139109779 R06.00 Nicotine dependence 5629 4008 F17.200 Acute exac erbation of chronic obstructive pulmonary disease 515826078 J44.1 Lymphadenopathy 31182897 R59.1 [id number] Jas Milner MD [facility] [address] [place] [address] 03/01/2025 07:55:25 03/01/2025 08:20:51 Adult health examination 241008884 Z00.00 patient presents for annual physical exam. No issues. patient is up-to-date on her mammogram, colonoscop y, low-dose CT. Will order a bone density scan. Diabetes mellitus 098079 09 E11.9 Will check lab work today and call patient with results. Hyperlipidemia 86005200 E78.5 patient is currently on atorvastat in. Will check her levels today. Thyroid di sorder screening 781579888 Z13.29 will check patient's TSH. Screening for malignant neoplasm of breast 241990140 Z12.31 Health Concerns Section Related Observation LastModified by Organization Detai ls LastModified Time None Recorded Concern Status LastModified by Organization Details LastModified Time None Recorded Payers Encounter Date Sequence Insurance Name Policy Number Policy Granger Covered Member ID Granger Member ID Guarantor Name 03/03/2025 1 [employer] (MEDICARE REPLACEMENT/ ADVANTAGE - HMO) Latoya Ruiz [id number] Latoya Ruiz 03/03/2025 2 [facility] Lat[facility] Ruiz [id number] Latoya Ruiz Notes Date Note Type Note Provider Name and Address Organization Details Recorded Time 03/03/2025 text/html Patient is a 74 year old female present today for a follow up visit. Patient states she is doing fine. Patient is using Trelegy 200 given samples by her primary care provider. Patient complains she recently has gotten over bronchitis. Patient denies hospitalization for breathing issues. Wilman Edge M.D [address] [place] [address], [address], [place], [address], [facility] - [facility] - [place] [facility] [place] 03/03/2025 16:18:14 OBGyn Episode No OBEpisode recorded.
--- OUTSIDE RECORDS SUMMARY | 2025-03-10 22:28 | XMS_ITS | Continuity of Care Document ---
Author Organization [place] - [facility] Address [address] [place] [address] Care Team Providers Care Lastex Thread Winder Name Role Phone JAS DU Primary Care Provider DANIELLE SHORE Wafer Abrading Machine Tender ARMAND MENDOZA Machine Repairer Assessment Encounter Date Assessment Date Assessment LastModified by Organization Details LastModified Time 03/01/2025 03/01/2025 PERSONALIZED HEALTH PLAN (COPY PROVIDED [...] 1 year. bsokan Not available 03/01/2025 08:09:57 Plan of Treatment Reminders Order Date Submit Date Provider Last Modified By Organization Details Last Modified Time Details Appointments OV EST 15 2024 02:00P M Wilman Edge M.D Not available Not available Not available Lab TSH, serum or plasma 2024 025 [facility] (Laboratory), [address] , [place], [address], 03/01/2025 14:17:45 HbA1c (hemoglob in A1c), blood 2024 025 [facility] (Laboratory), [address] [place], [address], 03/01/2025 13:56:41 microalbu min/creat inine, ratio, urine 2024 025 [facility] (Laboratory), [address] [place], [address], 03/08/2025 07:23:16 lipid panel, serum 2024 025 [facility] (Laboratory), [address] [place], [address], 03/01/2025 14:17:49 CMP, serum or plasma 2024 025 [facility] (Laboratory), [address] [place], [address], 03/01/2025 14:17:48 CBC w/ auto diff 2024 025 [facility] (Laboratory), [address] [place] [address] [place], [address], 03/01/2025 13:52:14 Referral None recorded. Procedures None recorded. Surgeries None recorded. Imaging MAMMO, screening , digital, bilateral 2024 [facility] Scheduling Department -New Scheduling Process, [address], [place], [address], 03/01/2025 08:35:23 Medication Orders None recorded. Patient TargetsNo targets recorded. Patient Instructions Encounter Date Encounter Id Patient Instructions Last Modified By Organization Details Last Modified Time 03/01/2025 [id number] advance directives: care instructions [email or web address] Not available 03/01/2025 08:12:01 well visit, over 65: care instructions bsokan Not available 03/01/2025 08:12:02 visual acuity* tpardini Not available 0 03/08/2025 07:21:38 Health Maintenance Recommendations: (5-10 year screening/prevent ion plan) bsokan Not available 03/01/2025 08:09:57 Reason for Referral None Reported. Results Created Date Observation Date Name Description Value Unit Range Abnormal Flag Note LastModifiedBy Organization Detail LastModifiedTime 02/16/2002/15/2025 imagi ng inter preta tion No observ ation record ed. tpardini [facility] (Registration ) [address] [place] [address] [place], [address], 02/15/2025 16:08:45 03/02/20 25 02/16/2025 compl ete PFT* No observ ation record ed. [facility] (Sleep Lab) [address] [place], [address], 03/03/2025 08:17:15 03/07/20 25 05/27/2023 XR, chest , 2 view No observ ation record ed. [address] (Radiology) [address] [place], [address], 03/07/2025 11:16:12 03/07/20 25 12/11/2023 LDCT, chest , for lung cance r scree lulu No observ ation record ed. [address] (Radiology) [address] [place], [address], 03/07/2025 11:15:54 03/07/20 25 05/17/2024 XR, chest , 2 view No observ ation record ed. [address] (Radiology) [address] [place], [address], 03/07/2025 11:15:41 03/07/20 25 12/21/2024 LDCT, chest , for lung cance r scree lulu No observ ation record ed. [facility] (Radiology) [address] [place], [address], 03/07/2025 11:14:12 03/07/20 25 02/16/2025 compl ete PFT* No observ ation record ed. [facility] [address] [place], [address], 03/07/2025 15:34:53 Result Notes None recorded. Problems Name Problem SNOMED Code Status Onset Date Resolution Date Notes Provider Name and Address Organization Details Recorded Time Malignant neoplasm of female breast 839979256 Active [place] - [facility] - [place] & [place] 09:33:45 Simple chronic bronchitis 11578488 Active Manuel guadarrama, [place] - [facility] - [place] & [place] 4 09:34:12 Patient encounter status 088382583 Active Manuel Underwood null, [place] - [facility] - [facility] & [place] 4 09:34:04 Paresthesi a 90095518 Active Manuel Underwood null, [place] - [facility] - [facility] & [place] 4 09:34:01 Allergic bronchitis 898839241 Active Manuel Underwood null, [place] - [facility] - [facility] & [place] 4 09:32:37 History of malignant neoplasm of breast 541219850 Active Manuel Underwood null, [place] - [facility] - [facility] & [place] 4 09:33:32 Bronchitis 27142954 Active Manuel Underwood null, [place] - [facility] - [facility] & [place] 4 09:32:40 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 Active Manuel Underwood null, [place] - [facility] - [facility] & [place] 4 09:33:58 Chronic diarrhea 969619424 Active Manuel Underwood null, [place] - [facility] - [facility] & [place] 4 09:32:54 Anemia 517257650 Active Not Available [facility] 4 07:59:57 Mixed hyperlipid emia 131550713 Active Not Available [facility] 4 07:59:57 Hematochez ia 609321424 Active Manuel Underwood null, [place] - [facility] - [facility] & [place] 4 09:33:28 Iron deficiency anemia 52732817 Active Manuel Underwood null, [place] - [facility] - [facility] & [place] 4 09:33:41 Acute bronchitis 19042227 Active Manuel Underwood null, [place] - [facility] - [facility] & [place] 4 09:32:22 Acute maxillary sinusitis 34983378 Active Manuel Underwood null, [place] - [facility] - [facility] & [place] 4 09:32:31 Diabetes mellitus 86387795 Active Manuel Underwood null, [place] - [facility] - [facility] & [place] 4 09:33:03 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 44091700 Active Not Available [facility] 4 07:59:57 Edema 398507527 Active Manuel Under[place] null[place] [facility] - [facility] & [place] 4 09:33:18 Chronic obstructiv e pulmonary disease 49554253 Active Not Available [facility] 4 07:59:57 Tobacco user 829425460 Active Manuel Underwood null, [place] - [facility] - [facility] & [place] 4 09:34:20 Seasonal allergic rhinitis 416288892 Active [place] [facility] - [facility] & [place] 4 09:34:08 Carpal tunnel syndrome of left wrist 3966678738563 02 Active Manuel Underwood null, [place] - [facility] - [facility] & [place] 4 09:32:44 Type 2 diabetes mellitus without complicati on 398007410 Active Not Available [facility] 4 07:59:57 Hyperlipid emia 63089251 Active Manuel Vacales null, [place] - [facility] - [facility] & [place] 4 09:33:36 Acute exacerbati on of chronic obstructiv e pulmonary disease 580000168 Active Manuel Vacales null, [place] - [facility] - [facility] & [place] 4 09:32:25 Gastroesop hageal reflux disease without esophagiti s 696627468 Active Not Available [facility] 4 07:59:57 Fecal occult blood: positive Active Manuel Underwood null, [place] - [facility] - [facility] & [place] 4 09:33:25 Vaccinatio n given 304674079 Active [place] null[place] - [facility] - [facility] & [place] 4 09:34:25 Chronic bronchitis 44266072 Active 2022 Manuel Under[place] null[place] [facility] - [facility] & [place] 4 09:32:48 Dyspnea on exertion 28247984 Active 2022 Manuel [place] null[place] [facility] - [facility] & [place] 4 09:33:14 Tobacco dependence caused by cigarettes 4002047232231 9107 Active 2022 Manuel [place] null, [place] [facility] [place] [facility] [place] 4 09:34:16 Problem Notes None recorded. Procedures Surgical History Date Name Laterality Status Provider Name and Address Organization Details Recorded Time 2024 Medicare Annual Wellness Visit Health Risk Assessment completed Yue Pardini [place] - [facility] - [place] & [place] 5 08:17:15 2023 completed Milka Shelbie [place] [facility] - [place] 4 15:56:21 2023 Most Recent Bone Density completed Mil[place] Shelbie [place] [facility] - [place] 4 15:56:21 2023 Medicare Annual Wellness Visit Health Risk Assessment completed Yue Pardini [place] [facility] - [place] 4 08:50:39 2021 Medicare Annual Wellness Visit Health Risk Assessment completed Yue Pardini [place] [facility] - [place] 2 08:21:17 2018 Date of Last Colonoscopy completed Milka Shelbie [place] [facility] - [place] 4 15:56:21 2018 Colonoscopy completed Mil[place] Shelbie [place] - [facility] - [place] 4 16:12:04 2015 Colonoscopy completed Mil[place] Shelbie [place] [facility] - [place] 4 16:10:05 2014 lumpectomy of left breast completed Zoë Singh [place] - [facility] - [place] & [place] 3 09:30:55 2013 esophagogastroduodenoscopy [place] Zoë Nicoletle [place] [facility] - [facility] & [place] 3 09:31:04 2013 EGD completed Harriet Joseph [place] [facility] - [place] 3 09:10:36 2011 Colonoscopy completed [place] Shelbie [place] [facility] - [place] [facility] [place] 4 16:09:30 2005 Colonoscopy completed [place] Shelbie [place] [facility] - [facility] & [place] 4 16:08:28 1991 Carpal Tunnel Surgery completed Zoë DIAZ [facility] & [place] 3 09:31:36 1981 cholecystectomy completed [place] Morfin [place] Rai [facility]ISE [facility] & [place] 4 16:07:26 1966 Tonsillectomy completed Zoë GUZMAN [facility] & [place] 3 09:31:15 Imaging Results None recorded. Procedure Notes None recorded. Medical Equipment None Reported. Allergies Allergen ID Allergen Name Allergen Category Reaction Reaction Severity Criticality Documentation Date Start Date Code Code System Note Provider Name and Address Organization Details Recorded Time 6993 glimepiri de medicatio n rash mild low 08/09/2022 32777 RxNorm [place] null, [facility] & [place] 5 13:14:36 6994 tamoxifen medicatio n diarrhea severe high 08/09/2022 22521 RxNorm [place] Colon null, [place] JOE [facility] & [place] 5 13:14:49 00861 Amaryl medicatio n rash Not available Not available 05/30/2023 48202 2 RxNorm Zoë Singh null, [facility] & [place] 3 09:29:55 12419 Augmentin medicatio n diarrhea severe high 05/30/2023 45919 2 RxNorm [place] null, [facility] & [place] 5 13:14:42 Medications Name Sig Start Date [...] Not Available Not Available No t Available Sydni Ellipta 200 mcg-62.5 mcg-25 mcg powder for [...] Details Last Updated DateTime 5 168.91 cm 28.1 kg/m2 38929.4 1 g 96.8 [degF] 98 % 98 % 107 /min 14 /min 135 mm[Hg] 71 mm[Hg] Yue Gordillo [facility] & [place] 08:11:42 Social History Question Answer Notes LastModified by Organizat ion Details LastModified Time Tobacco Smoking Status Former Smoker Yue Gordillo [facility] & [place] 12/02/2023 08:46:33 Do You Have An Advance Directive? No [email or web address] Information not available 05/05/2024 What Is Your Level Of Alcohol Consumption? None [email or web address] Information not available 09/25/2023 Do You Wear A Helmet When Biking? Yes [email or web address] Information not available 05/05/2024 Are You Blind Or Do You Have Difficulty Seeing? No [email or web address] Information not available 05/05/2024 What Is Your Level Of Caffeine Consumption? Occasional [email or web address] Information not available 12/29/2023 In The 14 Days Before Symptom Onset, Have You Had Close Contact With A Laboratory-confir med COVID-19 While That Case Was Ill? No [email or web address] Information not available 05/05/2024 In The 14 Days Before Symptom Onset, Have You Had Close Contact With A Person Who Is Under Investigation For COVID-19 While That Person Was Ill? No [email or web address] Information not available 05/05/2024 Have You Been To An Area Known To Be High Risk For COVID-19? No [email or web address] Information not available 05/05/2024 Are You Currently Employed? No [email or web address] Information not available 05/05/2024 Are You Deaf Or Do You Have Serious Difficulty Hearing? No [email or web address] Information not available 05/05/2024 What Type Of Diet Are You Following? REGULAR [email or web address] Information not available 05/05/2024 Have You Processed Blood Or Body Fluids From An Ebola Virus Disease Patient Without Appropriate PPE? No [email or web address] Information not available 05/05/2024 Do You Reside In Or Have You Traveled To An Area Where Ebola Virus Transmission Is Active? No Information not available 05/05/2024 Have There Been Any Changes To Your Family Or Social Situation? No [email or web address] Information no t available 05/05/2024 What Is The Fluoride Status Of Your Home? Unknown [email or web address] Information not available 05/05/2024 When Did You Quit Smoking? 1-5yearssincel eric mccord71 Information not available 12/29/2023 Are There Any Guns Present In Your Home? No [email or web address] Information not available 05/05/2024 Have You Recently Or Are You Planning To Travel To An Area With Zika Virus? No [email or web address] Information not available 05/05/2024 Do You Use Insect Repellent Routinely? Yes [email or web address] Information not available 05/05/2024 In General, Would [...] Bread, 1 Cup Of Whole-grain Or High-fiber Lqcow-ri-pxe Cereal, 1? 2 Cup Of Cooked Cereal Such As Oatmeal, Or 1? 2 Cup Of Cooked Brown Rice Or Whole Wheat Pasta.) 1-2 Servings Per Day Information not available 03/01/2025 In The Past 7 Days, How Many Servings Of Fried Or High-fat Foods Did You Typically Eat Each Day? (Examples Include Fried Chicken, Fried Fish, Lopez, [place], Potato Chips, [place] Chips, Doughnuts, Creamy Salad Dressings, And Foods [...] Past 7 Days, How Often Have You [place] Sleepy During The Daytime? Rarely Information not [...] Do You Feel Safe At Home? Yes [email or web address] Information not available 05/05/2024 Do You Have A Medical Power Of Serging Machine Operator Automatic? No [email or web address] Information not available 05/05/2024 What Was The Date Of Your Most Recent Tobacco Screening? 05/02/2024 Information not available 07/06/2024 What Is Your Current Pack Years? 30pennyorefish tam ophyaijsmzh82 Information not available 12/29/2023 Do You Have Any Pets? No [email or web address] Information not available 05/05/2024 Do You Use Your Seat Belt Or Car Seat Routinely? Yes [email or web address] Information not available 05/05/2024 Are You Sexually Active? No [email or web address] Information not available 12/29/2023 Do You Have Smoke And Carbon Monoxide Detectors In Your Home? Yes Information not available 05/05/2024 At What Age Did You Start Smoking Tobacco? 16 [email or web address] Information not available 12/29/2023 Are You Passively Exposed To Smoke? No [email or web address] Information no t available 05/05/2024 Do You Or Have You Ever Used Smokeless Tobacco? Never Used Smokeless Tobacco Information not available 07/06/2024 How Much Tobacco Do You Smoke? No Information not available 12/02/2023 Do You Feel Stressed (tense, Restless, Nervous, Or Anxious, Or Unable To Sleep At Night)? [id number] zvhnrry73 Information not available 12/02/2023 Do You Use Any Illicit Or Recreational Drugs? No Information not available 08/20/2022 Do You Use Sunscreen Routinely? Yes Information not available 05/05/2024 Has Tobacco Cessation Counseling Been Provided? No bxslzsbekww41 Information not available 12/29/2023 How Many Years Have You Smoked Tobacco? 59 epofhyicztb65 Information not available 09/25/2023 Are You Currently In School? No [email or web address] Information not available 05/05/2024 Do You Or Have You Ever Used Any Other Forms Of Tobacco Or Nicotine? No [email or web address] Information not available 12/29/2023 Sex: Unknown Functional Status Question Answer Note LastModified by Organizat ion Details LastModified Time Do you have difficulty walking or climbing stairs? No [email or web address] Information not available 05/05/2024 Do you have transportation difficulties? No hibwbmla41 Information not available 05/05/2024 Are you able to walk? YESWOREST hkraqjow77 Information not available 05/05/2024 Do you have difficulty doing errands alone? No [email or web address] Information not available 05/05/2024 Are you able to care for yourself? Yes [email or web address] Information n ot available 05/05/2024 Do you have difficulty dressing or bathing? No [email or web address] Information not available 05/05/2024 What is your exercise level? Occasional Information not available 07/06/2024 Mental Status Question Answer Note LastModified by Organization D etails LastModified Time Do you have difficulty concentrating, remembering or making decisions? No [email or web address] Information no t available 05/05/2024 Family History Relationship Description Onset Age of this Age Resolved Age Notes LastModified by Organization Details LastModified Time Mother Bronchitis [email or web address] Not avail able 03/03/2025 14:00:17 Mother Congestive heart failure [email or web address] Not available 03/03 14:00:17 Mother Arthritis [email or web address] Not availa ble 03/03/2025 14:00:17 Mother Diabetes mellitus [email or web address] Not available 03/03 14:00:17 Mother Heart disease Not available 2024 13:18:12 Mother Malignant neoplasm of uterus [email or web address] Not available 03/03 14:00:17 Mother Hypertensive disorder Not available 2024 13:19:38 Brother Heart disease 1 Not available 2023 16:05:35 Brother Diabetes mellitus 1 [email or web address] Not available 03/03 14:00:17 Brother Heart disease 2 Not available 2023 16:05:38 Brother Heart disease 3 Not available 2023 16:05:42 Brother Diabetes mellitus 2 sjriikqv90 Not available 03/03 14:00:17 Brother Diabetes mellitus 3 [email or web address] Not available 03/03 14:00:17 Brother Arthritis Brothe r 1 [email or web address] Not available 03/03/2025 14:00:17 Brother Hypertensive disorder All 5 brothe rs potlna36 Not available 01/27/2025 13:17:03 Sister Heart disease 1 Not available 2023 16:05:23 Sister Diabetes mellitus 1 [email or web address] Not available 03/03 14:00:17 Sister Heart disease 2 Not available 2023 16:05:32 Sister Diabetes mellitus 2 [email or web address] Not available 03/03 14:00:17 Sister Polyp precan cer polyp [email or web address] Not available 03/03/2025 14:00:17 Sister Hypertensive disorder Not available 2024 13:19:35 Paternal Grandfather Malignant tumor of colon ctyljypw14 Not available 03/03 14:00:17 Father Malignant tumor of stomach mxhhmsly13 Not available 03/03 14:00:17 Son Hypertensive disorder fogyvz94 Not available 2024 13:19:45 Medical History Condition [...] 2 completed Yue guadarrama [place] [facility] & [place] 08/26/2022 12:12:50 Influenza, adjuvanted, quadrivalent, PF 1 completed Harriet guadarrama [place] [facility] & [place] 11/14/2023 09:10:46 COVID-19, mRNA, LNP-S, PF, 100 mcg/0.5mL dose or 50 mcg/0.25mL dose 1 completed Harriet guadarrama [place] [facility] [facility] & [place] 11/14/2023 09:10:46 COVID-19, mRNA, LNP-S, bivalent, PF, 50 mcg/0.5 mL or 25mcg/0.25 mL dose 2 completed Harriet guadarrama [place] [facility] [facility] & [place] 11/14/2023 09:10:46 COVID-19, mRNA, LNP-S, PF, 100 mcg/0.5mL dose or 50 mcg/0.25mL dose 2 completed Harriet [place] null[place] [facility] [place] 11/14/2023 09:10:46 COVID-19, mRNA, LNP-S, PF, 100 mcg/0.5mL dose or 50 mcg/0.25mL dose 1 completed Harriet [place] [facility] [facility] [place] 11/14/2023 09:10:46 COVID-19, mRNA, LNP-S, PF, 100 mcg/0.5mL dose or 50 mcg/0.25mL dose 1 completed Harriet Joseph [place] [facility] [place] [facility] [place] 11/14/2023 09:10:46 Influenza, adjuvanted, trivalent, PF 0 completed Harriet [place] [facility] [facility] [place] 11/14/2023 09:10:46 pneumococcal polysaccharide PPV23 2 completed Harriet [place] null[place] [facility] [place] [facility] [place] 11/14/2023 09:10:46 Tdap 1 completed Har[place] [facility] 11/14/2023 09:10:46 Influenza, split virus, trivalent, preservative 6 completed Har[place] null[place] [facility] [facility] [place] 11/14/2023 09:10:46 Influenza, adjuvanted, trivalent, PF 8 completed [place] [facility] [facility] [place] 11/14/2023 09:10:46 Influenza, adjuvanted, quadrivalent, PF 0 completed Harriet [place] [facility] [facility] [place] 11/14/2023 09:10:46 Pneumococcal conjugate PCV 13 4 completed Harriet [place] null[place] [facility] [facility] [place] 11/14/2023 09:10:46 pneumococcal polysaccharide PPV23 7 completed Harriet [place] null[place] [facility] [facility] [place] 11/14/2023 09:10:46 Influenza, split virus, trivalent, preservative 5 completed Har[place] null[place] [facility] [facility] [place] 11/14/2023 09:10:46 zoster live 2 completed Hrariet [place] null, [place] - [facility] - [place] & [place] 11/14/2023 09:10:46 Influenza, high-dose, trivalent, PF 7 completed [place] [facility] [place] 11/14/2023 09:10:46 Influenza, adjuvanted, quadrivalent, PF 3 completed Danielle Shore MD [address] [facility], [place], [address], [facility] - [facility] & [place] 09/25/2023 14:47:01 Respiratory syncytial virus (RSV) vaccine, unspecified 3 completed [place] null, [place] [facility] [facility] & [place] 11/14/2023 09:10:46 RSV, recombinant, protein subunit RSVpreF, adjuvant reconstituted, 0.5 mL, PF 3 completed Yue Loihugoi null, [place] - [facility] & [place] 10/04/2024 12:01:52 COVID-19, mRNA, LNP-S, PF, yfn-sucrose, 30 mcg/0.3 mL 3 completed Yue Monsivaisdini null[place] [facility] [place] [facility] [place] 10/04/2024 12:01:52 zoster recombinant 4 completed Yue Terani [place] [facility] [facility] [place] 10/04/2024 12:01:52 Tdap 4 completed [place] [facility] [facility] [place] 04/08/2024 15:13:38 zoster recombinant 4 completed Yue Pardini [place] [facility] [facility] [place] 10/04/2024 12:01:52 Past Encounters Encounter ID Performer Location Encounter Start Date Encounter Closed Date Diagnosis/Indication Diagnosis SNOMED-CT Code Diagnosis ICD10 Code Diagnosis Note [id number] Jas Du MD [address] [place] [address] 03/01/2025 07:55:25 03/01/2025 08:20:51 Adult health examination 109313204 Z00.00 patient presents for annual physical exam. No issues. patient is up-to-date on her mammogram, colonoscop y, low-dose CT. Will order a bone density scan. Diabetes mellitus 697782 09 E11.9 Will check lab work today and call patient with results. Hyperlipidemia 80029119 E78.5 patient is currently on atorvastat in. Will check her levels today. Thyroid di sorder screening 565257131 Z13.29 will check patient's TSH. Screening for malignant neoplasm of breast 468246316 Z12.31 Health Concerns Section Related Observation LastModified by Organization Detai ls LastModified Time None Recorded Concern Status LastModified by Organization Details LastModified Time None Recorded Payers Encounter Date Sequence Insurance Name Policy Number Policy Granger Covered Member ID Granger Member ID Guarantor Name 03/01/2025 1 [employer] (MEDICARE REPLACEMENT/A DVANTAGE - HMO) Latoya Ruiz [id number] Latoya Ruiz 03/01/2025 2 [employer] Latoya Ruiz [id number] Latoya Ruiz Notes Date Note Type Note Provider Name and Address Organization Details Recorded Time 03/01/2025 text/html patient presents today for annual wellness exam. She denies any new issues. Jas Du MD [address] [place] [address], [place], [address], [facility] - [place] [facility] [place] 03/01/2025 08:56:42 OBGyn Episode No OBEpisode recorded.
== END 2025-03-09 23:59 | disposition home or self-care (01) ==
LOC: RAD 15:15
PROVIDERS: PCP Emergency Medicine; Visit Provider Emergency Medicine
DX: Z12.31 Encounter for screening mammogram for malignant neoplasm of breast (principal)
CPT/HCPCS: 77063; 77067